=== PATIENT | female | born 1945 | race Caucasian/White ===

== ENCOUNTER → 2016-12-31 | Outpatient (CLI) | payer MEDICARE ==
--- NOTE | 2016-12-31 10:11 | MM ---
Reason for exam: additional evaluation requested from prior study. Last mammogram was performed 1 year ago. History: Patient is postmenopausal. Took hormonal contraceptives for 1 year 6 months beginning at age 20. Physical Findings: Nurse did not find any significant physical abnormalities on exam. MG 3D Diag Mammo W/Cad ZORAN Bilateral CC and MLO view(s) were taken. Prior study comparison: December 31, 2015, bilateral MG 3d diag mammo w/cad ZORAN. July 03, 2015, left breast MG 3d diag mammo w/cad LT. There are scattered fibroglandular densities. There is chronic nodularity in the left breast. No significant new findings when compared with previous films. These results were verbally communicated with the patient and result sheet given to the patient on 12/31/16. ASSESSMENT: Benign, BI-RAD 2 RECOMMENDATION: Routine screening mammogram of both breasts in 1 year.
== END | disposition home or self-care (01) ==
LOC: RADMAMWWP 08:27
PROVIDERS: ATTEND Family Medicine
DX: R92.8 Other abnormal and inconclusive findings on diagnostic imaging of breast (principal)
CPT/HCPCS: G0204; G0279

== ENCOUNTER → 2018-03-02 | Outpatient (CLI) | payer MEDICARE | END | disposition home or self-care (01) | LOC: RADMAMWWP 07:18 | PROVIDERS: ATTEND Family Medicine | DX: Z53.9 Procedure and treatment not carried out, unspecified reason (principal) ==

== ENCOUNTER → 2018-03-30 | Outpatient (CLI) | payer MEDICARE ==
--- NOTE | 2018-03-30 13:56 | MM ---
Reason for exam: screening (asymptomatic). Last mammogram was performed 1 year and 3 months ago. History: Patient is postmenopausal. Took hormonal contraceptives for 1 year 6 months beginning at age 20. Physical Findings: A clinical breast exam by your physician is recommended on an annual basis and results should be correlated with mammographic findings. MG 3D Screening Mammo W/Cad Bilateral CC and MLO view(s) were taken. Prior study comparison: December 31, 2016, bilateral MG 3d diag mammo w/cad ZORAN. December 31, 2015, bilateral MG 3d diag mammo w/cad ZORAN. The breast tissue is heterogeneously dense. This may lower the sensitivity of mammography. There is chronic nodularity in the left breast. No significant changes when compared with prior studies. ASSESSMENT: Benign, BI-RAD 2 RECOMMENDATION: Routine screening mammogram of both breasts in 1 year.
== END | disposition home or self-care (01) ==
LOC: RADMAMWWP 07:40
PROVIDERS: ATTEND Family Medicine
DX: Z12.31 Encounter for screening mammogram for malignant neoplasm of breast (principal)
CPT/HCPCS: 77063; 77067

== ENCOUNTER → 2018-05-15 | Outpatient (CLI) | payer MEDICARE ==
--- NOTE | 2018-05-15 10:09 | XR ---
EXAMINATION TYPE: XR chest 2V DATE OF EXAM: 05/15/2018 COMPARISON: NONE HISTORY: History of asthma with shortness of breath TECHNIQUE: Frontal and lateral views of the chest are obtained. FINDINGS: There is no focal air space opacity, pleural effusion, or pneumothorax seen. The cardiac silhouette size is upper limits of normal. The osseous structures are intact. IMPRESSION: No suspicious acute pulmonary process.
== END | disposition home or self-care (01) ==
LOC: RADXRYALE 09:48
PROVIDERS: ATTEND Family Medicine
DX: J45.20 Mild intermittent asthma, uncomplicated (principal); R06.02 Shortness of breath
CPT/HCPCS: 71046

== ENCOUNTER → 2019-06-26 | Outpatient (CLI) | payer MEDICARE ==
--- NOTE | 2019-06-27 13:26 | MM ---
Reason for exam: screening (asymptomatic). Last mammogram was performed 1 year and 3 months ago. History: Patient is postmenopausal. Took hormonal contraceptives for 1 year 6 months beginning at age 20. Physical Findings: A clinical breast exam by your physician is recommended on an annual basis and results should be correlated with mammographic findings. MG 3D Screening Mammo W/Cad Bilateral CC and MLO view(s) were taken. Prior study comparison: March 30, 2018, bilateral MG 3d screening mammo w/cad. December 31, 2016, bilateral MG 3d diag mammo w/cad ZORAN. There is chronic nodularity bilaterally. Motion artifact, chronic problem. No significant changes when compared with prior studies. ASSESSMENT: Benign, BI-RAD 2 RECOMMENDATION: Routine screening mammogram of both breasts in 1 year.
== END | disposition home or self-care (01) ==
LOC: RADMAMWWP 08:49
PROVIDERS: ATTEND Family Medicine
DX: Z12.31 Encounter for screening mammogram for malignant neoplasm of breast (principal)
CPT/HCPCS: 77063; 77067

== ENCOUNTER 2021-12-27 09:57 | Emergency (ER) | payer MEDICARE ==
[2021-12-27 10:09] VITALS: RESP 18
[2021-12-27] MEDS ORDERED: ONDANSETRON 4 MG/2 ML VIAL IVP STA (10:15)
[2021-12-27] MEDS ORDERED: SODIUM CHLORIDE 0.9% 1,000 ML IV STA (10:15)
[2021-12-27] MEDS ORDERED: PANTOPRAZOLE 40 MG/10 ML VIAL IVP STA (10:15)
--- NOTE | 2021-12-27 10:17 | ED ---
Nausea/Vomiting/Diarrhea HPI - General Chief complaint: Nausea/Vomiting/Diarrhea Stated complaint: Nausea/vomiting Time Seen by Provider: 12/27/21 10:06 Source: patient, EMS, RN notes reviewed Mode of arrival: EMS Limitations: no limitations - History of Present Illness Initial comments: This is a 76-year-old female presents emergency Department via EMS chief complaint of nausea vomiting diarrhea. Patient states symptoms started this morning she continues to have nausea and vomiting she did have episodes of diarrhea. Denies any melena hematochezia. Patient denies any blood thinners no chest pain or shortness of breath. Patient states she was outside working in yard but was not strenuous yesterday. Patient denies any dysuria hematuria patient denies any sick contacts. - Related Data Previous Rx's Medication Instructions Recorded Ondansetron Odt [Zofran Odt] 4 mg PO Q8HR PRN #10 tab 12/27/21 metFORMIN HCL [Glucophage] 500 mg PO BID #60 tab 12/27/21 Allergies Allergy/AdvReac Type Severity Reaction Status Date / Time No Known Allergies Allergy Verified 12/31/14 16:07 Review of Systems ROS Statement: Those systems with pertinent positive or pertinent negative responses have been documented in the HPI. ROS Other: All systems not noted in ROS Statement are negative. Past Medical History Past Medical History: COPD, Hypertension Additional Past Medical History / Comment(s): Pre-diabetic History of Any Multi-Drug Resistant Organisms: None Reported Past Surgical History: No Surgical Hx Reported Smoking Status: Never smoker Past Alcohol Use History: None Reported Past Drug Use History: None Reported General Exam Limitations: no limitations General appearance: alert, in no apparent distress Head exam: Present: atraumatic, normocephalic, normal inspection Eye exam: Present: normal appearance, PERRL, EOMI. Absent: scleral icterus, conjunctival injection, periorbital swelling ENT exam: Present: normal exam, normal oropharynx, mucous membranes moist Neck exam: Present: normal inspection, full ROM. Absent: tenderness, m eningismus, lymphadenopathy Respiratory exam: Present: normal lung sounds bilaterally. Absent: respiratory distress, wheezes, rales, rhonchi, stridor Cardiovascular Exam: Present: regular rate, normal rhythm, normal heart sounds. Absent: systolic murmur, diastolic murmur, rubs, gallop, clicks GI/Abdominal exam: Present: soft, normal bowel sounds. Absent: distended, tenderness, guarding, rebound, rigid Back exam: Absent: CVA tenderness (R), CVA tenderness (L) Neurological exam: Present: alert Skin exam: Present: warm, dry, intact, normal color. Absent: rash Course Vital Signs 12/27/21 12/27/21 10:01 12:20 Temperature 97.6 F Pulse Rate 68 79 Respiratory 18 18 Rate Blood Pressure 168/60 140/69 O2 Sat by Pulse 97 95 Oximetry Medical Decision Making - Medical Decision Making 76-year-old presented for nausea vomiting. She is well-hydrated patient did have mild acidosis, hyperglycemia. She has been told she has borderline diabetic his blood sugar 223. Patient feels improved after antiemetics. Patient we discharged in stable condition return parameters were discussed. - Lab Data Result diagrams: 12/27/21 10:17 12/27/21 10:17 Lab Results 12/27/21 12/27/21 12/27/21 Range/Units 10:17 10:17 10:17 WBC 12.9 H (3.8-10.6) k/uL RBC 4.73 (3.80-5.40) m/uL Hgb 13.6 (11.4-16.0) gm/dL Hct 43.0 (34.0-46.0) % MCV 90.9 (80.0-100.0) fL MCH 28.7 (25.0-35.0) pg MCHC 31.6 (31.0-37.0) g/dL RDW 12.2 (11.5-15.5) % Plt Count 138 L (150-450) k/uL MPV 9.2 Neutrophils % 82 % Lymphocytes % 12 % Monocytes % 3 % Eosinophils % 1 % Basophils % 1 % Neutrophils # 10.6 H (1.3-7.7) k/uL Lymphocytes # 1.5 (1.0-4.8) k/uL Monocytes # 0.4 (0-1.0) k/uL Eosinophils # 0.1 (0-0.7) k/uL Basophils # 0.1 (0-0.2) k/uL Sodium 137 (137-145) mmol/L Potassium 4.1 (3.5-5.1) mmol/L Chloride 105 (98-107) mmol/L Carbon Dioxide 21 L (22-30) mmol/L Anion Gap 11 mmol/L BUN 17 (7-17) mg/dL Creatinine 1.10 H (0.52-1.04) mg/dL Est GFR (CKD-EPI)AfAm 57 (>60 ml/min/1.73 sqM) Est GFR (CKD-EPI)NonAf 49 (>60 ml/min/1.73 sqM) Glucose 223 H (74-99) mg/dL Lactic Ac Sepsis Rflx Plasma Lactic Acid John (0.7-2.0) mmol/L Calcium 8.9 (8.4-10.2) mg/dL Total Bilirubin 1.1 (0.2-1.3) mg/dL AST 33 (14-36) U/L ALT 22 (4-34) U/L Alkaline Phosphatase 76 (38-126) U/L Troponin I (0.000-0.034) ng/mL Total Protein 7.7 (6.3-8.2) g/dL Albumin 4.1 (3.5-5.0) g/dL Amylase 56 (30-110) U/L Lipase 97 (23-300) U/L Urine Color Yellow Urine Appearance Cloudy H (Clear) Urine pH 5.0 (5.0-8.0) Ur Specific [place] 1.014 (1.001-1.035) Urine Protein Negative (Negative) Urine Glucose (UA) 2+ H (Negative) Urine Ketones 2+ H (Negative) Urine Blood Negative (Negative) Urine Nitrite Negative (Negative) Urine Bilirubin Negative (Negative) Urine Urobilinogen <2.0 (<2.0) mg/dL Ur Leukocyte Esterase Negative (Negative) Urine RBC 2 (0-5) /hpf Urine WBC 2 (0-5) /hpf Ur Squamous Epith Cells 2 (0-4) /hpf Hyaline Casts 4 H (0-2) /lpf Urine Mucus Occasional H (None) /hpf 12/27/21 12/27/21 12/27/21 Range/Units 10:17 10:17 10:45 WBC (3.8-10.6) k/uL RBC (3.80-5.40) m/uL Hgb (11.4-16.0) gm/dL Hct (34.0-46.0) % MCV (80.0-100.0) fL MCH (25.0-35.0) pg MCHC (31.0-37.0) g/dL RDW (11.5-15.5) % Plt Count (150-450) k/uL MPV Neutrophils % % Lymphocytes % % Monocytes % % Eosinophils % % Basophils % % Neutrophils # (1.3-7.7) k/uL Lymphocytes # (1.0-4.8) k/uL Monocytes # (0-1.0) k/uL Eosinophils # (0-0.7) k/uL Basophils # (0-0.2) k/uL Sodium (137-145) mmol/L Potassium (3.5-5.1) mmol/L Chloride (98-107) mmol/L Carbon Dioxide (22-30) mmol/L Anion Gap mmol/L BUN (7-17) mg/dL Creatinine (0.52-1.04) mg/dL Est GFR (CKD-EPI)AfAm (>60 ml/min/1.73 sqM) Est GFR (CKD-EPI)NonAf (>60 ml/min/1.73 sqM) Glucose (74-99) mg/dL Lactic Ac Sepsis Rflx Y Plasma Lactic Acid John 2.5 H* (0.7-2.0) mmol/L Calcium (8.4-10.2) mg/dL Total Bilirubin (0.2-1.3) mg/dL AST (14-36) U/L ALT (4-34) U/L Alkaline Phosphatase (38-126) U/L Troponin I 0.015 (0.000-0.034) ng/mL Total Protein (6.3-8.2) g/dL Albumin (3.5-5.0) g/dL Amylase (30-110) U/L Lipase (23-300) U/L Urine Color Urine Appearance (Clear) Urine pH (5.0-8.0) Ur Specific [place] (1.001-1.035) Urine Protein (Negative) Urine Glucose (UA) (Negative) Urine Ketones (Negative) Urine Blood (Negative) Urine Nitrite (Negative) Urine Bilirubin (Negative) Urine Urobilinogen (<2.0) mg/dL Ur Leukocyte Esterase (Negative) Urine RBC (0-5) /hpf Urine WBC (0-5) /hpf Ur Squamous Epith Cells (0-4) /hpf Hyaline Casts (0-2) /lpf Urine Mucus (None) /hpf - EKG Data -: EKG Interpreted by Me EKG Comments: EKG performed at 10:10 sinus rhythm with a rate of 68 AR 144 QRS 94 QT/QTC 450/4 67 Disposition Clinical Impression: Gastroenteritis, Hyperglycemia Disposition: HOME SELF-CARE Condition: Stable Instructions (If sedation given, give patient instructions): Gastroenteritis (ED) Additional Instructions: Please return to the Emergency Department if symptoms worsen or any other concerns. Prescriptions: metFORMIN HCL [Glucophage] 500 mg PO BID #60 tab Ondansetron Odt [Zofran Odt] 4 mg PO Q8HR PRN #10 tab PRN Reason: Nausea Is patient prescribed a controlled substance at d/c from ED?: No Referrals: Eric Brenner DO [Primary Care Provider] - 1-2 days Time of Disposition: 12:49
[2021-12-27 10:31] LABS: Basophils # (A) 0.1 k/uL (0-0.2); Basophils % (A) 1 %; Eosinophils # (A) 0.1 k/uL (0-0.7); Eosinophils % (A) 1 %; HGB 13.6 gm/dL (11.4-16.0); Lymphocytes # (A) 1.5 k/uL (1.0-4.8); Lymphocytes % (A) 12 %; MCH 28.7 pg (25.0-35.0); MCHC 31.6 g/dL (31.0-37.0); MCV 90.9 fL (80.0-100.0); Mean Platelet Volume 9.2; Monocytes # (A) 0.4 k/uL (0-1.0); Monocytes % (A) 3 %; Neutrophils # (A) 10.6 k/uL (1.3-7.7); Neutrophils % (A) 82 %; Platelet Count 138 k/uL (150-450); RBC 4.73 m/uL (3.80-5.40); RDW 12.2 % (11.5-15.5); WBC 12.9 k/uL (3.8-10.6)
[2021-12-27 10:40] LABS: Albumin 4.1 g/dL (3.5-5.0); Calcium 8.9 mg/dL (8.4-10.2); Potassium 4.1 mmol/L (3.5-5.1); Total Bilirubin 1.1 mg/dL (0.2-1.3); Total Protein 7.7 g/dL (6.3-8.2)
[2021-12-27] MEDS ORDERED: METOCLOPRAMIDE 5 MG/ML 2 ML VIAL IVP STA (11:08)
[2021-12-27] MEDS ORDERED: SODIUM CHLORIDE 0.9% 500 ML 500 ML IV ONE (11:09)
[2021-12-27 12:16] LABS: Appearance,Urine Cloudy (Clear); Bilirubin,Urine Negative (Negative); Blood,Urine Negative (Negative); Color,Urine Yellow; Glucose,Urine (UA) 2+ (Negative); Hyaline Casts,Urine 4 /lpf (0-2); Leukocyte Esterase,Urine Negative (Negative); Mucus,Urine Occasional /hpf; Nitrite,Urine Negative (Negative); Protein,Urine Negative (Negative); RBC,Urine 2 /hpf (0-5); Specific Gravity,Urine 1.014 (1.001-1.035); Squamous Epithelial Cell,Urine 2 /hpf (0-4); Urobilinogen,Urine <2.0 mg/dL (<2.0); WBC,Urine 2 /hpf (0-5)
[2021-12-27 12:19] LABS: Ketones,Urine 2+ (Negative)
[2021-12-27] MEDS ORDERED: ONDANSETRON 4 MG ODT STARTER PACK 2 TAB BTL PO STA (12:46)
[2021-12-27 12:57] VITALS: BP 143/62; PULSE 78; TEMP 98
== END 2021-12-27 13:04 | disposition home or self-care (01) ==
LOC: EC 09:57
DX: K52.9 Noninfective gastroenteritis and colitis, unspecified (principal); R73.9 Hyperglycemia, unspecified; I10 Essential (primary) hypertension; J44.9 Chronic obstructive pulmonary disease, unspecified
CPT/HCPCS: 36415; 93005; 80053; 82150; 83605; 83690; 84484; 85025; 81001; 99284; 96374; 96375 ×2; 96361; J2765; J2405; S0119; C9113

== ENCOUNTER 2022-01-02 19:17 | Emergency (ER) | payer MEDICARE ==
[2022-01-02 19:24] VITALS: TEMP 97.7
[2022-01-02] MEDS ORDERED: SODIUM CHLORIDE 0.9% 1,000 ML IV STA (19:47)
--- NOTE | 2022-01-02 20:50 | XR ---
EXAMINATION TYPE: XR chest 2V DATE OF EXAM: 01/02/2022 COMPARISON: 05/15/2018 HISTORY: Dizziness TECHNIQUE: FINDINGS: Heart is normal. Lungs are clear of infiltrate. No heart failure. There are no hilar masses . Thoracic aorta is atheromatous. There are chest leads. IMPRESSION: No active cardiopulmonary disease. Normal heart. No change.
--- NOTE | 2022-01-02 20:54 | ED ---
General Adult HPI - General Chief complaint: Dizziness Stated complaint: Dizziness/Revisit here12/27 Time Seen by Provider: 01/02/22 19:28 Source: patient Mode of arrival: ambulatory Limitations: no limitations - History of Present Illness Initial comments: Patient is a 76-year-old female presenting with chief complaint of nausea and lightheadedness. Patient was seen here about one week ago, she was started on metformin due to high blood sugar and appearing pre-acidotic. Today she followed up with her PCP Dr. Brenner, who advised her to stop metformin. Her daughter at bedside states that after stopping it she began feeling nauseous and vomiting. Patient states that she felt lightheaded. She seemed to be more fatigued at home. Daughter states that earlier she had a severe bilateral hand tremor and cannot even hold a glass of water due to the shaking. Prior to arrival she took ondansetron which relieved her nausea and vomiting. Daughter states that she has been having diarrhea throughout this week. Patient denies any loss of consciousness or use of blood thinners. No recent fall or head injury. Patient lives with her family. She denies any chest pain or shortness of breath. No palpitations. No numbness or tingling. No abdominal pain. No dysuria or hematuria. No back pain. No Fever or chills. - Related Data Previous Rx's Medication Instructions Recorded Ondansetron Odt [Zofran Odt] 4 mg PO Q8HR PRN #10 tab 12/27/21 metFORMIN HCL [Glucophage] 500 mg PO BID #60 tab 12/27/21 Allergies Allergy/AdvReac Type Severity Reaction Status Date / Time No Known Allergies Allergy Verified 12/31/14 16:07 Review of Systems ROS Statement: Those systems with pertinent positive or pertinent negative responses have been documented in the HPI. ROS Other: All systems not noted in ROS Statement are negative. Past Medical History Past Medical History: COPD, Hypertension Additional Past Medical History / Comment(s): Pre-diabetic History of Any Multi-Drug Resistant Organisms: None Reported Past Surgical History: No Surgical Hx Reported Smoking Status: Never smoker Past Alcohol Use History: None Reported Past Drug Use History: None Reported General Exam Limitations: no limitations General appearance: alert, in no apparent distress Head exam: Present: atraumatic, normocephalic, normal inspection Eye exam: Present: normal appearance, EOMI. Absent: scleral icterus Neck exam: Present: normal inspection Respiratory exam: Present: normal lung sounds bilaterally. Absent: respiratory distress, wheezes, rales, rhonchi, stridor Cardiovascular Exam: Present: regular rate, normal rhythm, normal heart sounds. Absent: systolic murmur, diastolic murmur, rubs, gallop, clicks GI/Abdominal exam: Present: soft, normal bowel sounds. Absent: distended, tenderness, guarding, rebound, rigid Neurological exam: Present: alert, oriented X3, CN II-XII intact Expanded Patient oriented to: Present: person, place, time Speech: Present: fluid speech Cranial nerves: EOM's Intact: Normal, Tongue Deviation: Normal, Facial Sensation: Normal Cerebellar function: Finger to Nose: Normal, Heel to [place]: Normal Motor strength exam: RUE: 5, LUE: 5, RLE: 5, LLE: 5 Eye Response: (4) open spontaneously Motor Response: (6) obeys commands Verbal Response: (5) oriented [place] Total: 15 Psychiatric exam: Present: normal affect, normal mood Skin exam: Present: warm, dry, intact, normal color. Absent: rash Course Vital Signs 01/02/22 01/02/22 01/02/22 19:19 22:00 23:15 Temperature 97.7 F Pulse Rate 84 78 75 Respiratory 17 18 18 Rate Blood Pressure 150/73 143/80 140/69 O2 Sat by Pulse 96 95 97 Oximetry EKG Findings - EKG Comments: EKG Findings:: Sinus rhythm with rate of 85. NE interval 146. QRS duration 94. No acute ST or T-wave abnormalities. This EKG was also shown to and interpreted by the attending physician. Medical Decision Making - Medical Decision Making Patient is a 76-year-old female presenting for evaluation of lightheadedness, nausea, vomiting. Patient states that she was on metformin for 1 week after being evaluated here in the ER, today her PCP stopped this medication. After which she began feeling nauseous and vomiting, afterwards patient felt lightheaded and had a tremor. She to Zofran at home, by the time she reached the ER the patient states she was asymptomatic. On examination there are no focal neurological deficits, abdomen is soft, nontender, nondistended, heart and lungs are clear to auscultation. Patient is hyperglycemic at glucose of 151, no signs of acidosis. There is mild elevation of AST and ALT. Otherwise lab work is grossly negative. Chest x-ray is negative. On reassessment patient continues to feel well. She appears stable for discharge with outpatient follow-up at this time. Follow-up with PCP this week. Report back to ER if any new or worsening symptoms. Discussed return parameters alarm symptoms. Answered all questions. Patient conveyed verbal understanding and agreed to the plan. I discussed this case with my attending Dr. Larson. - Lab Data Result diagrams: 01/02/22 21:02 01/02/22 21:02 Lab Results 01/02/22 01/02/22 01/02/22 Range/Units 21:02 21:02 21:02 WBC 9.1 (3.8-10.6) k/uL RBC 4.63 (3.80-5.40) m/uL Hgb 13.9 (11.4-16.0) gm/dL Hct 41.4 (34.0-46.0) % MCV 89.5 (80.0-100.0) fL MCH 30.1 (25.0-35.0) pg MCHC 33.6 (31.0-37.0) g/dL RDW 12.8 (11.5-15.5) % Plt Count 128 L (150-450) k/uL MPV 8.8 Neutrophils % 86 % Lymphocytes % 8 % Monocytes % 4 % Eosinophils % 0 % Basophils % 1 % Neutrophils # 7.8 H (1.3-7.7) k/uL Lymphocytes # 0.7 L (1.0-4.8) k/uL Monocytes # 0.4 (0-1.0) k/uL Eosinophils # 0.0 (0-0.7) k/uL Basophils # 0.1 (0-0.2) k/uL PT 11.2 (9.0-12.0) sec INR 1.0 (<1.2) VBG pH (7.31-7.41) VBG pCO2 (37-51) mmHg VBG HCO3 (24-28) mmol/L Sodium 136 L (137-145) mmol/L Potassium 3.8 (3.5-5.1) mmol/L Chloride 102 (98-107) mmol/L Carbon Dioxide 26 (22-30) mmol/L Anion Gap 8 mmol/L BUN 16 (7-17) mg/dL Creatinine 0.87 (0.52-1.04) mg/dL Est GFR (CKD-EPI)AfAm 76 (>60 ml/min/1.73 sqM) Est GFR (CKD-EPI)NonAf 66 (>60 ml/min/1.73 sqM) Glucose 151 H (74-99) mg/dL Plasma Lactic Acid John (0.7-2.0) mmol/L Calcium 9.3 (8.4-10.2) mg/dL Total Bilirubin 0.9 (0.2-1.3) mg/dL AST 40 H (14-36) U/L ALT 35 H (4-34) U/L Alkaline Phosphatase 73 (38-126) U/L Troponin I (0.000-0.034) ng/mL Total Protein 7.7 (6.3-8.2) g/dL Albumin 4.1 (3.5-5.0) g/dL Amylase 63 (30-110) U/L Lipase 173 (23-300) U/L Urine Color Urine Appearance (Clear) Urine pH (5.0-8.0) Ur Specific [place] (1.001-1.035) Urine Protein (Negative) Urine Glucose (UA) (Negative) Urine Ketones (Negative) Urine Blood (Negative) Urine Nitrite (Negative) Urine Bilirubin (Negative) Urine Urobilinogen (<2.0) mg/dL Ur Leukocyte Esterase (Negative) Urine RBC (0-5) /hpf Urine WBC (0-5) /hpf Ur Squamous Epith Cells (0-4) /hpf Urine Bacteria (None) /hpf Hyaline Casts (0-2) /lpf Urine Mucus (None) /hpf Acetone, Qual Negative (Negative) 01/02/22 01/02/22 01/02/22 Range/Units 21:02 21:02 21:57 WBC (3.8-10.6) k/uL RBC (3.80-5.40) m/uL Hgb (11.4-16.0) gm/dL Hct (34.0-46.0) % MCV (80.0-100.0) fL MCH (25.0-35.0) pg MCHC (31.0-37.0) g/dL RDW (11.5-15.5) % Plt Count (150-450) k/uL MPV Neutrophils % % Lymphocytes % % Monocytes % % Eosinophils % % Basophils % % Neutrophils # (1.3-7.7) k/uL Lymphocytes # (1.0-4.8) k/uL Monocytes # (0-1.0) k/uL Eosinophils # (0-0.7) k/uL Basophils # (0-0.2) k/uL PT (9.0-12.0) sec INR (<1.2) VBG pH 7.44 H (7.31-7.41) VBG pCO2 40 (37-51) mmHg VBG HCO3 27 (24-28) mmol/L Sodium (137-145) mmol/L Potassium (3.5-5.1) mmol/L Chloride (98-107) mmol/L Carbon Dioxide (22-30) mmol/L Anion Gap mmol/L BUN (7-17) mg/dL Creatinine (0.52-1.04) mg/dL Est GFR (CKD-EPI)AfAm (>60 ml/min/1.73 sqM) Est GFR (CKD-EPI)NonAf (>60 ml/min/1.73 sqM) Glucose (74-99) mg/dL Plasma Lactic Acid John 1.5 (0.7-2.0) mmol/L Calcium (8.4-10.2) mg/dL Total Bilirubin (0.2-1.3) mg/dL AST (14-36) U/L ALT (4-34) U/L Alkaline Phosphatase (38-126) U/L Troponin I <0.012 (0.000-0.034) ng/mL Total Protein (6.3-8.2) g/dL Albumin (3.5-5.0) g/dL Amylase (30-110) U/L Lipase (23-300) U/L Urine Color Urine Appearance (Clear) Urine pH (5.0-8.0) Ur Specific [place] (1.001-1.035) Urine Protein (Negative) Urine Glucose (UA) (Negative) Urine Ketones (Negative) Urine Blood (Negative) Urine Nitrite (Negative) Urine Bilirubin (Negative) Urine Urobilinogen (<2.0) mg/dL Ur Leukocyte Esterase (Negative) Urine RBC (0-5) /hpf Urine WBC (0-5) /hpf Ur Squamous Epith Cells (0-4) /hpf Urine Bacteria (None) /hpf Hyaline Casts (0-2) /lpf Urine Mucus (None) /hpf Acetone, Qual (Negative) 01/02/22 Range/Units 22:00 WBC (3.8-10.6) k/uL RBC (3.80-5.40) m/uL Hgb (11.4-16.0) gm/dL Hct (34.0-46.0) % MCV (80.0-100.0) fL MCH (25.0-35.0) pg MCHC (31.0-37.0) g/dL RDW (11.5-15.5) % Plt Count (150-450) k/uL MPV Neutrophils % % Lymphocytes % % Monocytes % % Eosinophils % % Basophils % % Neutrophils # (1.3-7.7) k/uL Lymphocytes # (1.0-4.8) k/uL Monocytes # (0-1.0) k/uL Eosinophils # (0-0.7) k/uL Basophils # (0-0.2) k/uL PT (9.0-12.0) sec INR (<1.2) VBG pH (7.31-7.41) VBG pCO2 (37-51) mmHg VBG HCO3 (24-28) mmol/L Sodium (137-145) mmol/L Potassium (3.5-5.1) mmol/L Chloride (98-107) mmol/L Carbon Dioxide (22-30) mmol/L Anion Gap mmol/L BUN (7-17) mg/dL Creatinine (0.52-1.04) mg/dL Est GFR (CKD-EPI)AfAm (>60 ml/min/1.73 sqM) Est GFR (CKD-EPI)NonAf (>60 ml/min/1.73 sqM) Glucose (74-99) mg/dL Plasma Lactic Acid John (0.7-2.0) mmol/L Calcium (8.4-10.2) mg/dL Total Bilirubin (0.2-1.3) mg/dL AST (14-36) U/L ALT (4-34) U/L Alkaline Phosphatase (38-126) U/L Troponin I (0.000-0.034) ng/mL Total Protein (6.3-8.2) g/dL Albumin (3.5-5.0) g/dL Amylase (30-110) U/L Lipase (23-300) U/L Urine Color Yellow Urine Appearance Clear (Clear) Urine pH 5.0 (5.0-8.0) Ur Specific [place] 1.020 (1.001-1.035) Urine Protein Negative (Negative) Urine Glucose (UA) Negative (Negative) Urine Ketones 1+ H (Negative) Urine Blood Negative (Negative) Urine Nitrite Negative (Negative) Urine Bilirubin Negative (Negative) Urine Urobilinogen <2.0 (<2.0) mg/dL Ur Leukocyte Esterase Moderate H (Negative) Urine RBC 1 (0-5) /hpf Urine WBC 5 (0-5) /hpf Ur Squamous Epith Cells 1 (0-4) /hpf Urine Bacteria Rare H (None) /hpf Hyaline Casts 1 (0-2) /lpf Urine Mucus Few H (None) /hpf Acetone, Qual (Negative) Disposition Clinical Impression: Nausea and vomiting Disposition: HOME SELF-CARE Condition: Good Instructions (If sedation given, give patient instructions): Acute Nausea and Vomiting (ED), Dizziness (ED) Additional Instructions: Follow-up with PCP this week. Report back to ER if any new or worsening symptoms. Is patient prescribed a controlled substance at d/c from ED?: No Referrals: Eric Brenner DO [Primary Care Provider] - 01/04/22 Time of Disposition: 22:56
[2022-01-02 21:35] LABS: ALT 35 U/L (4-34); AST 40 U/L (14-36); African American GFR (CKD) 76 (>60 ml/min/1.73 sqM); Albumin 4.1 g/dL (3.5-5.0); Alkaline Phosphatase 73 U/L (38-126); Amylase 63 U/L (30-110); Anion Gap 8 mmol/L; Blood Urea Nitrogen 16 mg/dL (7-17); Calcium 9.3 mg/dL (8.4-10.2); Carbon Dioxide 26 mmol/L (22-30); Chloride 102 mmol/L (98-107); Glucose 151 mg/dL (74-99); Lipase 173 U/L (23-300); Non-African American GFR(CKD) 66 (>60 ml/min/1.73 sqM); Potassium 3.8 mmol/L (3.5-5.1); Sodium 136 mmol/L (137-145); Total Bilirubin 0.9 mg/dL (0.2-1.3); Total Protein 7.7 g/dL (6.3-8.2)
[2022-01-02 21:59] LABS: Prothrombin Time 11.2 sec (9.0-12.0)
[2022-01-02 22:14] LABS: Basophils # (A) 0.1 k/uL (0-0.2); Basophils % (A) 1 %; Eosinophils % (A) 0 %; HCT 41.4 % (34.0-46.0); HGB 13.9 gm/dL (11.4-16.0); Lymphocytes # (A) 0.7 k/uL (1.0-4.8); Lymphocytes % (A) 8 %; MCH 30.1 pg (25.0-35.0); MCHC 33.6 g/dL (31.0-37.0); MCV 89.5 fL (80.0-100.0); Mean Platelet Volume 8.8; Monocytes # (A) 0.4 k/uL (0-1.0); Monocytes % (A) 4 %; Neutrophils # (A) 7.8 k/uL (1.3-7.7); Neutrophils % (A) 86 %; Platelet Count 128 k/uL (150-450); RBC 4.63 m/uL (3.80-5.40); RDW 12.8 % (11.5-15.5); WBC 9.1 k/uL (3.8-10.6)
[2022-01-02 22:50] LABS: Appearance,Urine Clear (Clear); Bacteria,Urine Rare /hpf; Bilirubin,Urine Negative (Negative); Blood,Urine Negative (Negative); Color,Urine Yellow; Glucose,Urine (UA) Negative (Negative); Hyaline Casts,Urine 1 /lpf (0-2); Ketones,Urine 1+ (Negative); Leukocyte Esterase,Urine Moderate (Negative); Mucus,Urine Few /hpf; Nitrite,Urine Negative (Negative); Protein,Urine Negative (Negative); RBC,Urine 1 /hpf (0-5); Squamous Epithelial Cell,Urine 1 /hpf (0-4); Urobilinogen,Urine <2.0 mg/dL (<2.0); WBC,Urine 5 /hpf (0-5)
[2022-01-02 22:59] VITALS: RESP 18
[2022-01-02 22:59] LABS: VBG PH 7.44 (7.31-7.41)
[2022-01-02] MEDS ORDERED: ONDANSETRON 4 MG/2 ML VIAL IVP STA (23:10)
[2022-01-02 23:16] VITALS: BP 140/69; PULSE 75
== END 2022-01-02 23:29 | disposition home or self-care (01) ==
LOC: EC 19:17
DX: R11.2 Nausea with vomiting, unspecified (principal); J44.9 Chronic obstructive pulmonary disease, unspecified; I10 Essential (primary) hypertension
CPT/HCPCS: 36415; 93005; 80053; 82150; 82803; 82009; 83605; 83690; 84484; 85025; 85610; 81001; 71046; 99284; 96374; 96361; J2405

== ENCOUNTER 2022-01-17 02:18 | Inpatient (IN) | payer MEDICARE ==
[2022-01-17] MEDS ORDERED: SODIUM CHLORIDE 0.9% 500 ML 500 ML IV ONE (02:57)
[2022-01-17 03:37] LABS: Glucose,Whole Blood 137 mg/dL (70-110)
--- NOTE | 2022-01-17 03:41 | ED ---
Altered Mental Status HPI - General Chief Complaint: Altered Mental Status Stated Complaint: Lethargy Time Seen by Provider: 01/17/22 02:40 Source: EMS Mode of arrival: EMS Limitations: no limitations - History of Present Illness Initial Comments: This patient is a 76-year-old woman who is sent to have an evaluation after her daughter felt that she was too hard to arouse tonight. The patient's daughter then called EMS who brought her for evaluation. There is concern that the patient may have had a fall within the past 2-3 weeks and may have struck her head. When I interview the patient herself, she does not have complaints. She denies pain. She denies dyspnea. No nausea or vomiting. MD Complaint: altered mental status, decreased responsiveness -: hour(s) Severity: moderate Context: history of similar presentation Associated Symptoms: denies other symptoms - Related Data Previous Rx's Medication Instructions Recorded Ondansetron Odt [Zofran Odt] 4 mg PO Q8HR PRN #10 tab 12/27/21 metFORMIN HCL [Glucophage] 500 mg PO BID #60 tab 12/27/21 Allergies Allergy/AdvReac Type Severity Reaction Status Date / Time No Known Allergies Allergy Verified 12/31/14 16:07 Review of Systems ROS Statement: Those systems with pertinent positive or pertinent negative responses have been documented in the HPI. ROS Other: All systems not noted in ROS Statement are negative. Constitutional: Denies: fever, chills, weakness Eyes: Denies: eye pain Respiratory: Denies: cough, dyspnea Cardiovascular: Denies: chest pain, palpitations, edema Gastrointestinal: Denies: abdominal pain, vomiting, diarrhea Genitourinary: Denies: dysuria, frequency, hematuria Musculoskeletal: Denies: back pain Skin: Denies: rash Neurological: Denies: headache, weakness, numbness Past Medical History Past Medical History: COPD, Hypertension Additional Past Medical History / Comment(s): Pre-diabetic History of Any Multi-Drug Resistant Organisms: None Reported Past Surgical History: No Surgical Hx Reported Smoking Status: Never smoker Past Alcohol Use History: None Reported Past Drug Use History: None Reported General Exam Limitations: no limitations General appearance: alert, in no apparent distress Head exam: Present: atraumatic, normocephalic Eye exam: Present: normal appearance, PERRL, EOMI. Absent: scleral icterus, conjunctival injection Neck exam: Present: normal inspection, full ROM Respiratory exam: Present: normal lung sounds bilaterally. Absent: respiratory distress, wheezes, rales, rhonchi, stridor Cardiovascular Exam: Present: regular rate, normal rhythm, normal heart sounds. Absent: systolic murmur, diastolic murmur, rubs, gallop GI/Abdominal exam: Present: soft. Absent: distended, tenderness, guarding, rebound, rigid, mass Extremities exam: Present: normal inspection, normal capillary refill. Absent: pedal edema, calf tenderness Back exam: Present: normal inspection. Absent: CVA tenderness (R), CVA tenderness (L) Neurological exam: Present: other (Patient is somnolent but arousable. She follows simple commands but not able to fully comply with the neurologic exam.) Skin exam: Present: warm, dry, intact, normal color. Absent: rash Course Vital Signs 01/17/22 01/17/22 02:25 06:18 Temperature 96.9 F L 97.4 F L Pulse Rate 95 91 Respiratory 18 20 Rate Blood Pressure 103/54 113/60 O2 Sat by Pulse 94 L 97 Oximetry Medical Decision Making - Lab Data Result diagrams: 01/17/22 03:17 01/17/22 03:17 Lab Results 01/17/22 01/17/22 01/17/22 Range/Units 03:17 03:17 03:17 WBC 13.5 H (3.8-10.6) k/uL RBC 5.01 (3.80-5.40) m/uL Hgb 14.9 (11.4-16.0) gm/dL Hct 44.7 (34.0-46.0) % MCV 89.2 (80.0-100.0) fL MCH 29.8 (25.0-35.0) pg MCHC 33.4 (31.0-37.0) g/dL RDW 12.3 (11.5-15.5) % Plt Count 175 (150-450) k/uL MPV 8.4 Neutrophils % 80 % Lymphocytes % 11 % Monocytes % 6 % Eosinophils % 1 % Basophils % 1 % Neutrophils # 10.8 H (1.3-7.7) k/uL Lymphocytes # 1.5 (1.0-4.8) k/uL Monocytes # 0.8 (0-1.0) k/uL Eosinophils # 0.1 (0-0.7) k/uL Basophils # 0.1 (0-0.2) k/uL Sodium 133 L (137-145) mmol/L Potassium 4.1 (3.5-5.1) mmol/L Chloride 98 (98-107) mmol/L Carbon Dioxide 24 (22-30) mmol/L Anion Gap 11 mmol/L BUN 24 H (7-17) mg/dL Creatinine 1.65 H (0.52-1.04) mg/dL Est GFR (CKD-EPI)AfAm 35 (>60 ml/min/1.73 sqM) Est GFR (CKD-EPI)NonAf 30 (>60 ml/min/1.73 sqM) Glucose 133 H (74-99) mg/dL POC Glucose (mg/dL) (70-110) mg/dL POC Glu Web Ui Software Engineer ID Plasma Lactic Acid John (0.7-2.0) mmol/L Calcium 9.5 (8.4-10.2) mg/dL Total Bilirubin 1.6 H (0.2-1.3) mg/dL AST 59 H (14-36) U/L ALT 61 H (4-34) U/L Alkaline Phosphatase 89 (38-126) U/L Ammonia (<30) umol/L Troponin I <0.012 (0.000-0.034) ng/mL Total Protein 8.6 H (6.3-8.2) g/dL Albumin 4.4 (3.5-5.0) g/dL TSH 2.120 (0.465-4.680) mIU/L 01/17/22 01/17/22 Range/Units 03:17 03:34 WBC (3.8-10.6) k/uL RBC (3.80-5.40) m/uL Hgb (11.4-16.0) gm/dL Hct (34.0-46.0) % MCV (80.0-100.0) fL MCH (25.0-35.0) pg MCHC (31.0-37.0) g/dL RDW (11.5-15.5) % Plt Count (150-450) k/uL MPV Neutrophils % % Lymphocytes % % Monocytes % % Eosinophils % % Basophils % % Neutrophils # (1.3-7.7) k/uL Lymphocytes # (1.0-4.8) k/uL Monocytes # (0-1.0) k/uL Eosinophils # (0-0.7) k/uL Basophils # (0-0.2) k/uL Sodium (137-145) mmol/L Potassium (3.5-5.1) mmol/L Chloride (98-107) mmol/L Carbon Dioxide (22-30) mmol/L Anion Gap mmol/L BUN (7-17) mg/dL Creatinine (0.52-1.04) mg/dL Est GFR (CKD-EPI)AfAm (>60 ml/min/1.73 sqM) Est GFR (CKD-EPI)NonAf (>60 ml/min/1.73 sqM) Glucose (74-99) mg/dL POC Glucose (mg/dL) 137 H (70-110) mg/dL POC Glu Web Ui Software Engineer ID Sylvain Espino Plasma Lactic Acid John 1.5 (0.7-2.0) mmol/L Calcium (8.4-10.2) mg/dL Total Bilirubin (0.2-1.3) mg/dL AST (14-36) U/L ALT (4-34) U/L Alkaline Phosphatase (38-126) U/L Ammonia 14 (<30) umol/L Troponin I (0.000-0.034) ng/mL Total Protein (6.3-8.2) g/dL Albumin (3.5-5.0) g/dL TSH (0.465-4.680) mIU/L - EKG Data -: EKG Interpreted by Wy EKG shows normal: sinus rhythm, intervals (NJ interval 140 ms, QTC 493 ms, these are both normal. QRS duration 155 ms, prolonged consistent with left bundle branch block.), QRS complexes ((Bundle-branch block.) Rate: normal (Rate 88 bpm) Disposition Clinical Impression: Altered mental status Disposition: ADMITTED IP TO THIS HOSP Condition: Good Is patient prescribed a controlled substance at d/c from ED?: No
[2022-01-17 03:54] LABS: Basophils # (A) 0.1 k/uL (0-0.2); Basophils % (A) 1 %; Eosinophils # (A) 0.1 k/uL (0-0.7); Eosinophils % (A) 1 %; HCT 44.7 % (34.0-46.0); HGB 14.9 gm/dL (11.4-16.0); Lymphocytes # (A) 1.5 k/uL (1.0-4.8); Lymphocytes % (A) 11 %; MCH 29.8 pg (25.0-35.0); MCHC 33.4 g/dL (31.0-37.0); MCV 89.2 fL (80.0-100.0); Mean Platelet Volume 8.4; Monocytes # (A) 0.8 k/uL (0-1.0); Monocytes % (A) 6 %; Neutrophils # (A) 10.8 k/uL (1.3-7.7); Neutrophils % (A) 80 %; Platelet Count 175 k/uL (150-450); RBC 5.01 m/uL (3.80-5.40); RDW 12.3 % (11.5-15.5); WBC 13.5 k/uL (3.8-10.6)
[2022-01-17 04:12] LABS: Lactic Acid, Venous 1.5 mmol/L (0.7-2.0)
[2022-01-17 04:14] LABS: ALT 61 U/L (4-34); AST 59 U/L (14-36); African American GFR (CKD) 35 (>60 ml/min/1.73 sqM); Albumin 4.4 g/dL (3.5-5.0); Alkaline Phosphatase 89 U/L (38-126); Anion Gap 11 mmol/L; Blood Urea Nitrogen 24 mg/dL (7-17); Calcium 9.5 mg/dL (8.4-10.2); Carbon Dioxide 24 mmol/L (22-30); Chloride 98 mmol/L (98-107); Glucose 133 mg/dL (74-99); Non-African American GFR(CKD) 30 (>60 ml/min/1.73 sqM); Potassium 4.1 mmol/L (3.5-5.1); Sodium 133 mmol/L (137-145); Total Bilirubin 1.6 mg/dL (0.2-1.3); Total Protein 8.6 g/dL (6.3-8.2)
[2022-01-17] MEDS ORDERED: SODIUM CHLORIDE 0.9% 1,000 ML IV ONE (06:06)
--- NOTE | 2022-01-17 06:31 | CT ---
ADDENDUM - Added by Robin Contreras M.D. on 01/17/2022 6:31 AM (-07:00) Addendum to correct a dictation error in Impression 2 which should read IMPRESSION: 1. 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 Recommend contrast-enhanced MRI for more detailed evaluation. 2. Sulcal effacement of the bilateral anterior frontal lobe sulci with no midline shift or transtentorial herniation. No acute intracranial hemorrhage. EXAM: CT Head Without Intravenous Contrast CLINICAL HISTORY: ITS.REASON CT Reason: Altered mental status TECHNIQUE: Axial computed tomography images of the head/brain without intravenous contrast. CTDI is 49.269 mGy and DLP is 1096.4 mGy-cm. This CT exam was performed using one or more of the following dose reduction techniques: automated exposure control, adjustment of the mA and/or kV according to patient size, and/or use of iterative reconstruction technique. COMPARISON: No relevant prior studies available. 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 No hemorrhage. No midline shift. Ventricles: Ventriculomegaly of the bilateral lateral ventricles. Decompressed third and fourth ventricles. Bones/joints: Unremarkable. No acute fracture. Soft tissues: Unremarkable. Sinuses: Unremarkable as visualized. No acute sinusitis. Mastoid air cells: Unremarkable as visualized. No mastoid effusion. IMPRESSION: 1. 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 Recommend contrast-enhanced MRI for more detailed evaluation. 2. Sulcal effacement of bilateral anterior frontal lobe sulci with no midline shift. Transtentorial herniation. No acute intracranial hemorrhage. <MYCVCSECTION> Communications: 01/17/22 06:45 Verify Receipt Verified receipt with quality assurance clerk Gem report given to Dr. Evans on 01/17 06:45 (-04:00)
--- NOTE | 2022-01-17 06:35 | XR ---
EXAM: XR Chest, 1 View CLINICAL HISTORY: ITS.REASON XR Reason: altered mental status TECHNIQUE: Frontal view of the chest. COMPARISON: No relevant prior studies available. FINDINGS: Lungs: Unremarkable. No consolidation. Pleural space: Unremarkable. No pneumothorax. Heart: Unremarkable. No cardiomegaly. Mediastinum: Unremarkable. Bones/joints: Unremarkable. IMPRESSION: Normal chest x-ray.
[2022-01-17] MEDS ORDERED: NALOXONE 0.4 MG/ML 1 ML VIAL IV PRN ×2 (06:50→10:03)
[2022-01-17] MEDS ORDERED: ACETAMINOPHEN TAB 325 MG TAB PO PRN (06:50)
[2022-01-17] MEDS ORDERED: SODIUM CHLORIDE 0.9% 1,000 ML IV SCH (07:00)
[2022-01-17] MEDS ORDERED: ONDANSETRON 4 MG/2 ML VIAL IVP PRN (10:03)
[2022-01-17] MEDS ORDERED: ENOXAPARIN 40 MG/0.4 ML SYRINGE SQ SCH (10:30)
[2022-01-17] MEDS ORDERED: DEXAMETHASONE SOD PHOSPHATE 10 MG/ML 1 ML VIAL IVP STA (10:37)
--- NOTE | 2022-01-17 10:48 | P.HPIM ---
History of Present Illness H&P Date: 01/17/22 Chief Complaint: Altered mental status History of present is illness: 76-year-old female with past medical history significant for prediabetes, hypertension, possible history of anesthesia chronic kidney disease. Patient presented to emergency room with her daughter was altered mental status. The patient has been having symptoms for the past 3 weeks and presented to the emergency room 3 times already. Daughter stated that she was having episodes of nausea and vomiting alternating with weakness and altered mental status. The patient daughter stated that before 3 weeks ago the patient was normal and very active. The daughter stated that she has been having difficulty ambulating was leaning to the right. The patient also had multiple complaints including headache and visual changes. Patient is only alert oriented to herself unable to give me good history secondary to altered mental status. But she denies any chest pain or shortness of breath. She is nauseous. Workup in emergency room showed evidence of hypodense mass within the anterior corpus callosum measuring 5.1 cm 3.02.1 cm with mild hydrocephalus of the bilateral lateral ventricles. Evidence of acute kidney injury secondary to decreased oral intake and dehydration. Review of systems: All 14 review of systems evaluated and all negative except for above. Physical examination: General: Pleasantly confused Derm: warm, dry Head: atraumatic, normocephalic, symmetric Eyes: EOMI, no lid lag, anicteric sclera Mouth: no lip lesion, mucus membranes moist Cardiovascular: S1S2 reg, no murmur, positive posterior tibial pulse bilateral, Lungs: CTA bilateral, no rhonchi, no rales , no accessory muscle use Abdominal: soft, nontender to palpation, no guarding, no appreciable organomegaly Ext: no gross muscle atrophy, no edema, no contractures Neuro: Unable to assess secondary to confusion Psych: Alert, patient only alert and oriented to herself Assessment and plan: #Altered mental status, intractable nausea vomiting, weakness secondary to a anterior corpus callosum brain mass. -Most likely a combination of acute metabolic encephalopathy and brain tumor -Nothing by mouth -Stat MRI with and without contrast ordered -Neurology consultation was placed -Spoke to Dr. Coates for neurosurgery at [facility] recommended the patient to be transferred to [facility]. -Dr. Coates he is accepting physician at [facility] -Neuro checks every 2 hours -Stat Drabek test ordered for the accepting facility #Acute kidney injury -Most likely secondary to prerenal azotemia and decreased oral intake -IV fluids #Hypertension -Lisinopril on hold due to acute kidney injury #History of mild intermittent asthma -No acute exacerbation. Patient satting 97% on room air -Patient on Singulair #DVT prophylaxis with Lovenox #Full code Past Medical History Past Medical History: COPD, Hypertension Additional Past Medical History / Comment(s): Pre-diabetic History of Any Multi-Drug Resistant Organisms: None Reported Past Surgical History: No Surgical Hx Reported Past Anesthesia/Blood Transfusion Reactions: No Reported Reaction Smoking Status: Never smoker Past Alcohol Use History: None Reported Past Drug Use History: None Reported Medications and Allergies Home Medications Medication Instructions Recorded Confirmed Type Ondansetron Odt [Zofran Odt] 4 mg PO Q8HR PRN #10 tab 12/27/21 Rx metFORMIN HCL [Glucophage] 500 mg PO BID #60 tab 12/27/21 Rx Allergies Allergy/AdvReac Type Severity Reaction Status Date / Time No Known Allergies Allergy Verified 12/31/14 16:07 Physical Exam Vitals: Vital Signs Temp Pulse Pulse Resp BP BP Pulse Ox 01/17/22 08:08 97.4 F L 91 20 113/60 97 01/17/22 08:00 98.1 F 85 16 133/76 97 01/17/22 06:18 97.4 F L 91 20 113/60 97 01/17/22 02:25 96.9 F L 95 18 103/54 94 L Intake and Output 01/16/22 01/17/22 01/17/22 22:59 06:59 14:59 Other: Weight 74.843 kg 74.843 kg Results CBC & Chem 7: 01/17/22 03:17 01/17/22 03:17 Labs: Abnormal Lab Results - Last 24 Hours (Table) 01/17/22 01/17/22 01/17/22 Range/Units 03:17 03:17 03:34 WBC 13.5 H (3.8-10.6) k/uL Neutrophils # 10.8 H (1.3-7.7) k/uL Sodium 133 L (137-145) mmol/L BUN 24 H (7-17) mg/dL Creatinine 1.65 H (0.52-1.04) mg/dL Glucose 133 H (74-99) mg/dL POC Glucose (mg/dL) 137 H (70-110) mg/dL Total Bilirubin 1.6 H (0.2-1.3) mg/dL AST 59 H (14-36) U/L ALT 61 H (4-34) U/L Total Protein 8.6 H (6.3-8.2) g/dL Thrombosis Risk Factor Assmnt - Choose All That Apply Any of the Below Risk Factors Present?: Yes Each Factor Represents 1 point: Abnormal pulmonary function (COPD), Medical pt on bed rest, Obesity (BMI >25) Other Risk Factors: Yes Each Risk Factor Represents 3 Points: Age 75 years or older Thrombosis Risk Factor Assessment Total Risk Factor Score: 6 Thrombosis Risk Factor Assessment Level: High Risk
[2022-01-17] MEDS ORDERED: levETIRAcetam IV 1,000 MG in SALINE 1 100ML.BAG IVPB STA (10:49)
--- NOTE | 2022-01-17 10:54 | P.CNNES ---
History of Present Illness Consult date: 01/17/22 Requesting physician: Ranjit Esparza Reason for Consult: Altered mental status History of Present Illness: This is Tele-neurology consultation performed today on 01/17/2022. Patient is a 76-year-old female came to the hospital by ambulance health informatics specialist today at 2:18 AM As per EMS flow sheet, when they arrived, patient was laying in the bed and the family was present. Patient was lethargic, alert to verbal stimuli oriented 4. Patient does have history of dementia. Family mentioned that they called 911 out of concern for the patient's lethargic state. She has not been eating or drinking like normal. They state she has become increasingly weak over the last 3 weeks. Patient is diabetic and her blood glucose was 143. Patient did take trazodone as prescribed at 10 PM. EKG showed normal sinus rhythm. Patient's blood pressure at the scene was 85/36, pulse rate 88, respiration 18 and saturation 98%. Patient's vitals on arrival blood pressure 103/54, pulse of 95 temperature 96.9. Blood test shows WBC 13.5 normal hemoglobin and platelets. Sodium 133 potassium 4.1, BU and 24 creatinine 1.65. AST 59, ALT 61 ammonia is normal troponin negative. TSH normal. CT head showed hypodense mass centered within the anterior corpus callosum measuring 5.1 x 3.0 x 2.1 cm with mild hydrocephalus of the bilateral lateral ventricles. Recommend contrast enhanced MRI for more detailed evaluation. Sulcal effacement of bilateral anterior frontal lobe sulci with no midline shift. Transtentorial herniation. No acute intracranial hemorrhage. I personally reviewed CT head and neck revealed the findings. No previous CT scans available for comparison. Past Medical History Past Medical History: COPD, Hypertension Additional Past Medical History / Comment(s): Pre-diabetic History of Any Multi-Drug Resistant Organisms: None Reported Past Surgical History: No Surgical Hx Reported Smoking Status: Never smoker Past Alcohol Use History: None Reported Past Drug Use History: None Reported Medications and Allergies Home Medications Medication Instructions Recorded Confirmed Type Ondansetron Odt [Zofran Odt] 4 mg PO Q8HR PRN #10 tab 12/27/21 Rx metFORMIN HCL [Glucophage] 500 mg PO BID #60 tab 12/27/21 Rx Albuterol Sulfate [Albuterol 2 puff PO RT-Q4H PRN 01/17/22 01/17/22 History Sulfate Hfa] Folic Acid 1 mg PO DAILY 01/17/22 01/17/22 History Ketoconazole 2% Cream [Nizoral 2%] 1 applic TOPICAL BID PRN 01/17/22 01/17/22 History Montelukast Sodium [Singulair] 10 mg PO HS 01/17/22 01/17/22 History Omeprazole 20 mg PO DAILY 01/17/22 01/17/22 History Oxybutynin Chloride [Oxybutynin 10 mg PO DAILY 01/17/22 01/17/22 History Chloride ER] lisinopriL [Zestril] 40 mg PO DAILY 01/17/22 01/17/22 History traZODone HCL 150 mg PO HS 01/17/22 01/17/22 History Allergies Allergy/AdvReac Type Severity Reaction Status Date / Time No Known Allergies Allergy Verified 12/31/14 16:07 Physical Examination - Vital Signs Vital Signs: Vital Signs Temp Pulse Pulse Resp BP BP Pulse Ox 01/17/22 08:08 97.4 F L 91 20 113/60 97 01/17/22 08:00 98.1 F 85 16 133/76 97 01/17/22 06:18 97.4 F L 91 20 113/60 97 01/17/22 02:25 96.9 F L 95 18 103/54 94 L Intake and Output 01/16/22 01/17/22 01/17/22 22:59 06:59 14:59 Other: Weight 74.843 kg Results - Laboratory Findings CBC and BMP: 01/17/22 03:17 01/17/22 03:17 Abnormal Lab Findings: Abnormal Labs 01/17/22 01/17/22 01/17/22 03:17 03:17 03:34 WBC 13.5 H Neutrophils # 10.8 H Sodium 133 L BUN 24 H Creatinine 1.65 H Glucose 133 H POC Glucose (mg/dL) 137 H Total Bilirubin 1.6 H AST 59 H ALT 61 H Total Protein 8.6 H Assessment and Plan Assessment: * Brain mass measuring 5.1 x 3.0 x 2.1 cm within the anterior corpus callosum with mild hydrocephalus. CT images concerning for glioblastoma multiform. * Episodes of staring/zoning out off and on for last 3 months. Rule out seizures * New onset intermittent dizziness, nausea vomiting, gait imbalance for last 3 weeks. Plan: * Patient needs further workup and an urgent neurosurgical consultation for evaluation of brain mass. * MRI of the brain with and without contrast. * Patient will be given loading dose of Keppra 1000 mg IV stat, and then maintained on Keppra 500 mg twice a day. * Dexamethasone 10 mg IV push followed by 6 mg every 6 hours. * EEG * DVT prophylaxis * Discussed with patient's daughter in detail. She is in agreement for transfer to higher level of care for neurosurgical consultation. * Thank you for the consult.
--- NOTE | 2022-01-17 11:34 | P.DS ---
Providers Date of admission: 01/17/22 06:50 Expected date of discharge: 01/17/22 Attending physician: Francesca Stratton MD Consults: 01/17/22 06:50 Consult Physician Urgent Consulting Provider: Liliana Abrams Consult Reason/Comments: Altered mental status. Do you want consulting provider notified?: Yes 01/17/22 08:33 Consult Physician Routine Consulting Provider: Liliana Abrams Consult Reason/Comments: altered MS. Brain Do you want consulting provider notified?: Yes Primary care physician: [facility] Course: History of present is illness: 76-year-old female with past medical history significant for prediabetes, hypertension, possible history of anesthesia chronic kidney disease. Patient presented to emergency room with her daughter was altered mental status. The patient has been having symptoms for the past 3 weeks and presented to the emergency room 3 times already. Daughter stated that she was having episodes of nausea and vomiting alternating with weakness and altered mental status. The patient daughter stated that before 3 weeks ago the patient was normal and very active. The daughter stated that she has been having difficulty ambulating was leaning to the right. The patient also had multiple complaints including headache and visual changes. Patient is only alert oriented to herself unable to give me good history secondary to altered mental status. But she denies any chest pain or shortness of breath. She is nauseous. Workup in emergency room showed evidence of hypodense mass within the anterior corpus callosum measuring 5.1 cm 3.02.1 cm with mild hydrocephalus of the bilateral lateral ventricles. Evidence of acute kidney injury secondary to decreased oral intake and dehydration. Physical examination on discharge: General: Pleasantly confused Derm: warm, dry Head: atraumatic, normocephalic, symmetric Eyes: EOMI, no lid lag, anicteric sclera Mouth: no lip lesion, mucus membranes moist Cardiovascular: S1S2 reg, no murmur, positive posterior tibial pulse bilateral, Lungs: CTA bilateral, no rhonchi, no rales , no accessory muscle use Abdominal: soft, nontender to palpation, no guarding, no appreciable organomegaly Ext: no gross muscle atrophy, no edema, no contractures Neuro: Unable to assess secondary to confusion Psych: Alert, patient only alert and oriented to herself Detailed the problem list #Altered mental status, intractable nausea vomiting, weakness secondary to a anterior corpus callosum brain mass. -Most likely a combination of acute metabolic encephalopathy and brain tumor -Nothing by mouth -Patient started on IV Decadron per neurology -Stat MRI with and without contrast ordered -Neurology consultation was placed -Spoke to Dr. Coates for neurosurgery at [facility] recommended the patient to be transferred to [facility]. -Dr. Coates he is accepting physician at [facility] -Neuro checks every 2 hours -Stat Drabek test ordered for the accepting facility #Acute kidney injury -Most likely secondary to prerenal azotemia and decreased oral intake -IV fluids #Hypertension -Lisinopril on hold due to acute kidney injury #History of mild intermittent asthma -No acute exacerbation. Patient satting 97% on room air -Patient on Singulair Patient is transferred to [facility] Patient Condition at Discharge: Fair Plan - Discharge Summary Discharge Rx Participant: No New Discharge Prescriptions: No Action lisinopriL [Zestril] 40 mg PO DAILY Omeprazole 20 mg PO DAILY metFORMIN HCL [Glucophage] 500 mg PO BID #60 tab Ondansetron Odt [Zofran Odt] 4 mg PO Q8HR PRN #10 tab PRN Reason: Nausea Oxybutynin Chloride [Oxybutynin Chloride ER] 10 mg PO DAILY Montelukast Sodium [Singulair] 10 mg PO HS Ketoconazole 2% Cream [Nizoral 2%] 1 applic TOPICAL BID PRN PRN Reason: Skin Irritation-Groin Area Folic Acid 1 mg PO DAILY Albuterol Sulfate [Albuterol Sulfate Hfa] 2 puff PO RT-Q4H PRN PRN Reason: Shortness Of Breath traZODone HCL 150 mg PO HS Discharge Medication List Ondansetron Odt [Zofran Odt] 4 mg PO Q8HR PRN #10 tab 12/27/21 [Rx] metFORMIN HCL [Glucophage] 500 mg PO BID #60 tab 12/27/21 [Rx] Albuterol Sulfate [Albuterol Sulfate Hfa] 2 puff PO RT-Q4H PRN 01/17/22 [History] Folic Acid 1 mg PO DAILY 01/17/22 [History] Ketoconazole 2% Cream [Nizoral 2%] 1 applic TOPICAL BID PRN 01/17/22 [History] Montelukast Sodium [Singulair] 10 mg PO HS 01/17/22 [History] Omeprazole 20 mg PO DAILY 01/17/22 [History] Oxybutynin Chloride [Oxybutynin Chloride ER] 10 mg PO DAILY 01/17/22 [History] lisinopriL [Zestril] 40 mg PO DAILY 01/17/22 [History] traZODone HCL 150 mg PO HS 01/17/22 [History] Follow up Appointment(s)/Referral(s): Eric Brenner DO [Primary Care Provider] - 1-2 days Patient Instructions/Handouts: Altered Mental Status (ED)
[2022-01-17] MEDS ORDERED: CLOTRIMAZOLE 1% CREAM 30 GM TUBE TOPICAL PRN (11:41)
[2022-01-17] MEDS ORDERED: ALBUTEROL NEBULIZED 2.5 MG/3 ML INHALATION PRN (11:41)
[2022-01-17] MEDS ORDERED: ONDANSETRON ODT 4 MG TAB PO PRN (11:41)
[2022-01-17 14:42] VITALS: BP 131/80; PULSE 77; RESP 16; TEMP 98.3
[2022-01-17] MEDS ORDERED: MONTELUKAST 10 MG TAB PO SCH (21:00)
[2022-01-17] MEDS ORDERED: traZODone HCL 50 MG TAB PO SCH (21:00)
[2022-01-18] MEDS ORDERED: FOLIC ACID 1 MG TAB PO SCH (09:00)
[2022-01-18] MEDS ORDERED: ENOXAPARIN 30 MG/0.3 ML SYRINGE SQ SCH (09:00)
[2022-01-18] MEDS ORDERED: PANTOPRAZOLE 40 MG/10 ML VIAL IVP SCH (09:00)
[2022-01-18] MEDS ORDERED: OXYBUTYNIN 10 MG TAB.ER.24 PO SCH (09:00)
== END 2022-01-17 15:31 | disposition short-term general hospital (02) | DRG 54 ==
LOC: EC 02:18 → 4SSUR 06:50 → OBSVTOIN 11:32
PROVIDERS: ADMIT Internal Medicine; ATTEND Internal Medicine
DX: D43.2 Neoplasm of uncertain behavior of brain, unspecified (principal); G93.41 Metabolic encephalopathy; G93.5 Compression of brain; N17.9 Acute kidney failure, unspecified; G91.9 Hydrocephalus, unspecified; I12.9 Hypertensive chronic kidney disease with stage 1 through stage 4 chronic kidney disease, or unspecified chronic kidney disease; N18.9 Chronic kidney disease, unspecified; J45.20 Mild intermittent asthma, uncomplicated; I44.7 Left bundle-branch block, unspecified; E86.0 Dehydration; F03.90 Unspecified dementia, unspecified severity, without behavioral disturbance, psychotic disturbance, mood disturbance, and anxiety; J44.9 Chronic obstructive pulmonary disease, unspecified; E66.9 Obesity, unspecified; Z68.28 Body mass index [BMI] 28.0-28.9, adult; E11.22 Type 2 diabetes mellitus with diabetic chronic kidney disease; Z79.84 Long term (current) use of oral hypoglycemic drugs; Z79.899 Other long term (current) drug therapy
CPT/HCPCS: 36415; 70450; 71045; 80053; 82140; 83605; 84443; 84484; 85025; 87635; 93005; 99285

== ENCOUNTER 2022-02-14 17:03 | Inpatient (IN) | payer MEDICARE ==
[2022-02-14] MEDS ORDERED: levETIRAcetam IV 2,000 MG in SALINE 1 100ML.BAG IVPB STA (17:10)
[2022-02-14] MEDS ORDERED: levETIRAcetam IV 2,000 MG in SODIUM CHLORIDE 0.9% 250 ML IVPB STA (17:13)
--- NOTE | 2022-02-14 17:34 | ED ---
General Adult HPI - General Stated complaint: Seizure Time Seen by Provider: 02/14/22 17:08 Source: family, EMS, RN notes reviewed, old records reviewed Mode of arrival: EMS - History of Present Illness Initial comments: Patient is a 76-year-old female with past medical history remarkable for COPD, hypertension, diabetes, recently diagnosed glioblastoma who presents emergency Department with a breakthrough seizure. Was on seizure prophylaxis medications, Right home. Seizure was witnessed by family. Was generalized tonic-clonic. Did have loss of bowels. Has been confused since the seizure. Baseline is confusion for the patient but she normally is able to talk. Currently is not speaking since the seizure. But her alertness seems to be improving. He was being evaluated at [facility] for her brain cancer. Patient remains confused and is a poor historian at this time. Patient's family presented to the emergency department provide further information. Patient's current mental status is her baseline since multiple hospitalizations for the last few months after being diagnosed with her brain tumor. Biopsy was done at [place]. There was discussion that she should foll ow up with oncology which has not happened yet. Family believes that comfort care is best for the patient. They're looking to start the patient on hospice. They'd like to make her DNR/DNI. - Related Data Home Medications Medication Instructions Recorded Confirmed Albuterol Sulfate [Albuterol 2 puff PO RT-Q4H PRN 01/17/22 02/14/22 Sulfate Hfa] Folic Acid 1 mg PO DAILY 01/17/22 02/14/22 Montelukast Sodium [Singulair] 10 mg PO HS 01/17/22 02/14/22 Omeprazole 20 mg PO DAILY 01/17/22 02/14/22 lisinopriL [Zestril] 40 mg PO DAILY 01/17/22 02/14/22 Acetaminophen [Tylenol] 650 mg PO Q6H PRN 02/14/22 02/14/22 Fluconazole [Diflucan] 100 mg PO DAILY 02/14/22 02/14/22 Metoprolol Tartrate [Lopressor] 25 mg PO BID 02/14/22 02/14/22 Mirtazapine 7.5 mg PO HS 02/14/22 02/14/22 Nystatin 100,000 Unit/ml Susp 5 ml PO QID 02/14/22 02/14/22 [Mycostatin Oral Susp] [place]-3/Dha/Epa/Fish Oil [Fish Oil 2 cap PO DAILY 02/14/22 02/14/22 500 mg Softgel] dexAMETHasone 4 mg PO BID 02/14/22 02/14/22 levETIRAcetam [Keppra] 500 mg PO Q12HR 02/14/22 02/14/22 traZODone HCL [Desyrel] 50 mg PO HS 02/14/22 02/14/22 Allergies Allergy/AdvReac Type Severity Reaction Status Date / Time No Known Allergies Allergy Verified 02/14/22 20:16 Review of Systems ROS Statement: Those systems with pertinent positive or pertinent negative responses have been documented in the HPI. ROS Other: All systems not noted in ROS Statement are negative. Past Medical History Past Medical History: COPD, Hypertension Additional Past Medical History / Comment(s): Pre-diabetic History of Any Multi-Drug Resistant Organisms: None Reported Past Surgical History: No Surgical Hx Reported Past Anesthesia/Blood Transfusion Reactions: No Reported Reaction Past Psychological History: Depression Smoking Status: Never smoker Past Alcohol Use History: None Reported Past Drug Use History: None Reported General Exam - General Exam Comments Initial Comments: General: Appears in no acute distress. HEAD: Healing surgical site over the patient's scalp from the biopsy site. Maria E are intact. Actively healing. No signs of infection. EYES: PERRLA, EOMI, conjunctiva normal, no discharge. Peoples 3 mm and equal bilaterally. ENT: Hearing grossly intact, Thrush is present in the oropharynx. RESPIRATORY: Clear breath sounds bilaterally. No wheezes, rales, or rhonchi. C/V: Regular rate and rhythm. S1 and S2 auscultated, no edema, peripheral pulses 2+ and intact throughout ABD: Abd is soft, nontender, nondistended EXT: no obvious deformity SKIN: No rashes or lesions observed on exposed skin. NEURO: Alert but not oriented. At her baseline. Moving all 4 extremities. No obvious focal deficits. Course Vital Signs 02/14/22 02/14/22 02/14/22 17:08 18:58 21:48 Temperature 96.7 F L Pulse Rate 69 72 68 Respiratory 18 16 18 Rate Blood Pressure 169/72 160/69 O2 Sat by Pulse 95 95 Oximetry Medical Decision Making - Medical Decision Making Based on the patient's presentation and physical exam, does appear she expressed seizure in the setting of brain cancer. Family is looking to make the patient comfort care only. They do not plan on taking chemoradiation or further brain surgery. Patient is diagnosed the [facility]. I discussed with them the option of being transferred back to [place] that they would like the patient remained close to home. As they do not plan on any intervention, do believe this is appropriate. With her history of brain cancer we obtain a CT of the brain as this is her first known seizure since the diagnosis. She was on Keppra empirically and I will start her on a IV bolus Keppra. Seizure precautions were ordered. Basic labs will be obtained. CT brain will be obtained. There were in agreement with this plan. Vital signs within normal limits. EKG showed no signs of acute ischemia. Laboratory studies are remarkable for a thrombocytopenia of 77. Patient has a hyponatremia of 122 and hypochloremia at 92 which per family is chronic. Patient is slightly elevated AST and ALT. Urine shows 2+ glucose. Blood sugar level is slightly elevated to 171. Remainder the labs are unremarkable. CT imaging revealed no acute intracranial process, with redemonstrated mass and edema that is unchanged. On re-evaluation, exam is unchanged. No seizures while she has been in the department. Like to admitted to the hospital for hyponatremia, hospice evaluation, as well as evaluation by neurology. Family was in agreement this plan. CODE STATUS was updated to DNR/DNI. Hospice was consulted. I consulted neurology and spoke with Dr. Call who agreed to evaluate the patient here in the hospital. Recommended increasing Keppra dosing to 750 mg twice a day. I spoke with the admitting physician, Dr. yao who accepted the patient was in agreement this plan. Patient was admitted in stable condition. Patient was started on IV fluids to treat her hyponatremia. - Lab Data Result diagrams: 02/14/22 17:54 02/14/22 17:54 Lab Results 02/14/22 02/14/22 02/14/22 Range/Units 17:44 17:54 17:54 WBC 8.6 (3.8-10.6) k/uL RBC 5.11 (3.80-5.40) m/uL Hgb 14.9 (11.4-16.0) gm/dL Hct 45.2 (34.0-46.0) % MCV 88.5 (80.0-100.0) fL MCH 29.2 (25.0-35.0) pg MCHC 33.0 (31.0-37.0) g/dL RDW 12.5 (11.5-15.5) % Plt Count 77 L D (150-450) k/uL MPV 8.0 Neutrophils % 90 % Lymphocytes % 6 % Monocytes % 3 % Eosinophils % 0 % Basophils % 0 % Neutrophils # 7.7 (1.3-7.7) k/uL Lymphocytes # 0.6 L (1.0-4.8) k/uL Monocytes # 0.3 (0-1.0) k/uL Eosinophils # 0.0 (0-0.7) k/uL Basophils # 0.0 (0-0.2) k/uL Sodium (137-145) mmol/L Potassium (3.5-5.1) mmol/L Chloride (98-107) mmol/L Carbon Dioxide (22-30) mmol/L Anion Gap mmol/L BUN (7-17) mg/dL Creatinine (0.52-1.04) mg/dL Est GFR (CKD-EPI)AfAm (>60 ml/min/1.73 sqM) Est GFR (CKD-EPI)NonAf (>60 ml/min/1.73 sqM) Glucose (74-99) mg/dL POC Glucose (mg/dL) 164 H (70-110) mg/dL POC Glu Chief Of Vital Statistics ID Jessie Farrell Calcium (8.4-10.2) mg/dL Magnesium (1.6-2.3) mg/dL Total Bilirubin (0.2-1.3) mg/dL AST (14-36) U/L ALT (4-34) U/L Alkaline Phosphatase (38-126) U/L Total Protein (6.3-8.2) g/dL Albumin (3.5-5.0) g/dL Urine Color Yellow Urine Appearance Clear (Clear) Urine pH 6.0 (5.0-8.0) Ur Specific [place] 1.022 (1.001-1.035) Urine Protein Trace H (Negative) Urine Glucose (UA) 2+ H (Negative) Urine Ketones Negative (Negative) Urine Blood Negative (Negative) Urine Nitrite Negative (Negative) Urine Bilirubin Negative (Negative) Urine Urobilinogen 3.0 (<2.0) mg/dL Ur Leukocyte Esterase Negative (Negative) Salicylates mg/dL Urine Opiates Screen Not Detected (NotDetected) Ur Oxycodone Screen Not Detected (NotDetected) Urine Methadone Screen Not Detected (NotDetected) Ur Propoxyphene Screen Not Detected (NotDetected) Acetaminophen ug/mL Ur Barbiturates Screen Not Detected (NotDetected) U Tricyclic Antidepress Not Detected (NotDetected) Ur Phencyclidine Scrn Not Detected (NotDetected) Ur Amphetamines Screen Not Detected (NotDetected) U Methamphetamines Scrn Not Detected (NotDetected) U Benzodiazepines Scrn Not Detected (NotDetected) Urine Cocaine Screen Not Detected (NotDetected) U Marijuana (THC) Screen Not Detected (NotDetected) Serum Alcohol mg/dL 02/14/22 Range/Units 17:54 WBC (3.8-10.6) k/uL RBC (3.80-5.40) m/uL Hgb (11.4-16.0) gm/dL Hct (34.0-46.0) % MCV (80.0-100.0) fL MCH (25.0-35.0) pg MCHC (31.0-37.0) g/dL RDW (11.5-15.5) % Plt Count (150-450) k/uL MPV Neutrophils % % Lymphocytes % % Monocytes % % Eosinophils % % Basophils % % Neutrophils # (1.3-7.7) k/uL Lymphocytes # (1.0-4.8) k/uL Monocytes # (0-1.0) k/uL Eosinophils # (0-0.7) k/uL Basophils # (0-0.2) k/uL Sodium 122 L (137-145) mmol/L Potassium 5.0 (3.5-5.1) mmol/L Chloride 92 L (98-107) mmol/L Carbon Dioxide 24 (22-30) mmol/L Anion Gap 6 mmol/L BUN 36 H (7-17) mg/dL Creatinine 0.85 (0.52-1.04) mg/dL Est GFR (CKD-EPI)AfAm 78 (>60 ml/min/1.73 sqM) Est GFR (CKD-EPI)NonAf 68 (>60 ml/min/1.73 sqM) Glucose 171 H (74-99) mg/dL POC Glucose (mg/dL) (70-110) mg/dL POC Glu Chief Of Vital Statistics ID Calcium 8.7 (8.4-10.2) mg/dL Magnesium 1.7 (1.6-2.3) mg/dL Total Bilirubin 1.4 H (0.2-1.3) mg/dL AST 62 H (14-36) U/L ALT 172 H (4-34) U/L Alkaline Phosphatase 100 (38-126) U/L Total Protein 6.3 (6.3-8.2) g/dL Albumin 3.4 L (3.5-5.0) g/dL Urine Color Urine Appearance (Clear) Urine pH (5.0-8.0) Ur Specific [place] (1.001-1.035) Urine Protein (Negative) Urine Glucose (UA) (Negative) Urine Ketones (Negative) Urine Blood (Negative) Urine Nitrite (Negative) Urine Bilirubin (Negative) Urine Urobilinogen (<2.0) mg/dL Ur Leukocyte Esterase (Negative) Salicylates <1.0 mg/dL Urine Opiates Screen (NotDetected) Ur Oxycodone Screen (NotDetected) Urine Methadone Screen (NotDetected) Ur Propoxyphene Screen (NotDetected) Acetaminophen <10.0 ug/mL Ur Barbiturates Screen (NotDetected) U Tricyclic Antidepress (NotDetected) Ur Phencyclidine Scrn (NotDetected) Ur Amphetamines Screen (NotDetected) U Methamphetamines Scrn (NotDetected) U Benzodiazepines Scrn (NotDetected) Urine Cocaine Screen (NotDetected) U Marijuana (THC) Screen (NotDetected) Serum Alcohol <10 mg/dL - EKG Data -: EKG Interpreted by Me EKG Comments: 12-lead Electrocardiogram Interpretation Note EKG was reviewed and interpreted by myself. 12-lead ECG performed at 1726 is interpreted by me as revealing normal sinus rhythm at a rate of 67 beats per minute. [place] is normal. [place] interval is 130 ms, QRS duration is 102 ms, QTc is 419 ms.. There were no ST or T wave abnormalities to suggest myocardial ischemia or injury. R wave progression across the precordium was satisfactory. By my interpretation this EKG is non-diagnostic for acute ischemia. Disposition Clinical Impression: Seizure, Glioblastoma, Dehydration, Hyponatremia, Thrush Disposition: ADMITTED IP TO THIS HOSP Condition: Stable Time of Disposition: 19:50
[2022-02-14 18:01] LABS: Glucose,Whole Blood 164 mg/dL (70-110)
[2022-02-14 18:04] LABS: Appearance,Urine Clear (Clear); Basophils % (A) 0 %; Bilirubin,Urine Negative (Negative); Blood,Urine Negative (Negative); Color,Urine Yellow; Eosinophils % (A) 0 %; Glucose,Urine (UA) 2+ (Negative); HCT 45.2 % (34.0-46.0); HGB 14.9 gm/dL (11.4-16.0); Ketones,Urine Negative (Negative); Leukocyte Esterase,Urine Negative (Negative); Lymphocytes # (A) 0.6 k/uL (1.0-4.8); Lymphocytes % (A) 6 %; MCH 29.2 pg (25.0-35.0); MCV 88.5 fL (80.0-100.0); Monocytes # (A) 0.3 k/uL (0-1.0); Monocytes % (A) 3 %; Neutrophils # (A) 7.7 k/uL (1.3-7.7); Neutrophils % (A) 90 %; Nitrite,Urine Negative (Negative); Protein,Urine Trace (Negative); RBC 5.11 m/uL (3.80-5.40); RDW 12.5 % (11.5-15.5); Specific Gravity,Urine 1.022 (1.001-1.035); WBC 8.6 k/uL (3.8-10.6)
[2022-02-14 18:07] LABS: Platelet Count 77 k/uL (150-450)
[2022-02-14 18:15] LABS: ALT 172 U/L (4-34); AST 62 U/L (14-36); Acetaminophen <10.0 ug/mL; African American GFR (CKD) 78 (>60 ml/min/1.73 sqM); Albumin 3.4 g/dL (3.5-5.0); Alcohol <10 mg/dL; Alkaline Phosphatase 100 U/L (38-126); Anion Gap 6 mmol/L; Blood Urea Nitrogen 36 mg/dL (7-17); Calcium 8.7 mg/dL (8.4-10.2); Carbon Dioxide 24 mmol/L (22-30); Chloride 92 mmol/L (98-107); Glucose 171 mg/dL (74-99); Magnesium 1.7 mg/dL (1.6-2.3); Non-African American GFR(CKD) 68 (>60 ml/min/1.73 sqM); Salicylate <1.0 mg/dL; Sodium 122 mmol/L (137-145); Total Bilirubin 1.4 mg/dL (0.2-1.3); Total Protein 6.3 g/dL (6.3-8.2)
[2022-02-14 18:17] LABS: Amphetamine Screen,Urine Not Detected (NotDetected); Barbiturate Screen,Urine Not Detected (NotDetected); Benzodiazepines Screen,Urine Not Detected (NotDetected); Cocaine Screen,Urine Not Detected (NotDetected); Methadone Screen, Urine Not Detected (NotDetected); Opiate Screen,Urine Not Detected (NotDetected); Oxycodone Screen, Urine Not Detected (NotDetected); Phencyclidine Screen,Urine Not Detected (NotDetected); Tricyclic Antidepressant,Urine Not Detected (NotDetected); Urn Cannabinoid Scrn Not Detected (NotDetected)
--- NOTE | 2022-02-14 18:48 | CT ---
EXAMINATION TYPE: CT brain wo con DATE OF EXAM: 02/14/2022 COMPARISON: 01/17/2022 HISTORY: Seizure activity, recently diagnosed with glioblastoma, bx CT DLP: 1142.4 mGycm Automated exposure control for dose reduction was used. There is a midline mass at the anterior aspect of the corpus callosum which measures approximately 3. 5 cm. There is some effacement of the sulci and probably some diffuse cerebral edema. No midline shif t. No evidence of intracranial hemorrhage. Calvarium is intact. IMPRESSION: Midline low density mass at the anterior corpus callosum extending into the lateral ventricles which is consistent with tumor and not significantly different than recent exam. There is decrease in the sulcal pattern of the brain that could relate to some diffuse cerebral edema . Unchanged.
[2022-02-14] MEDS ORDERED: SODIUM CHLORIDE 0.9% 1,000 ML IV STA (19:31)
[2022-02-14] MEDS ORDERED: NALOXONE 0.4 MG/ML 1 ML VIAL IV PRN (20:04)
[2022-02-14] MEDS ORDERED: ONDANSETRON 4 MG/2 ML VIAL IVP PRN (20:37)
[2022-02-14] MEDS ORDERED: levETIRAcetam IV 750 MG in SODIUM CHLORIDE 0.9% 100 ML IVPB SCH (21:00)
[2022-02-14] MEDS: METOPROLOL TARTRATE 25 MG TAB PO SCH (21:33)
[2022-02-14] MEDS: NYSTATIN 100,000 UNIT/ML SUSP 500,000 UNIT/5 ML CUP PO SCH (21:33)
[2022-02-14] MEDS: MIRTAZAPINE 15 MG TAB PO SCH (21:33)
[2022-02-14] MEDS: dexAMETHasone 4 MG TAB PO SCH (21:33)
[2022-02-14] MEDS: MONTELUKAST 10 MG TAB PO SCH (21:34)
--- NOTE | 2022-02-15 02:35 | P.HPIM ---
History of Present Illness The patient is 76-year-old female with a PMH of recently diagnosed glioblastoma, type II DM, hypertension, COPD who was brought into the emergency room by EMS for breakthrough seizure. The patient recently been started on antiseizure medications after diagnosis of her brain malignancy. Procedure was reportedly tonic-clonic, occurring at around 3 PM earlier today, witnessed by her family, with resulting bowel incontinence. The history is provided by the daughter at the bedside as the patient is now at baseline only oriented to person. The patient was initially admitted to [facility] in 01/17 for altered mental status and was diagnosed with a brain mass. She was subsequently transferred to [facility] where she underwent a brain biopsy revealing the mass to be a glioblastoma. The family discussed the case in great detail with neurosurgery at [place] as well as oncology, and decided to not pursue any treatments. She was hospitalized for 2 weeks and subsequently was discharged home, however her condition worsened and she required hospitalization with subsequent discharge this past Tuesday. The daughter reports that during the last 1 month, the patient's overall condition has deteriorated significantly, and that she is now only oriented to self and is essentially bedbound. She also reports the patient has not been eating or drinking much due to thrush that the family has noticed on her tongue. Daughter repeatedly states that the family wishes for the patient to be made hospice and comfort care. They requested a hospice consult, and noted that the patient would not have wanted to pursue aggressive therapy in light of the poor prognosis of her malignancy. The patient reported hypogastric abdominal discomfort but denied any additional complaints. Laboratory evaluation in the emergency room was remarkable for sodium 122, chloride 92, BUN 36, total bilirubin 1.4, and platelet count 77. CT brain revealed a mass at the corpus callosum consistent with tumor not significantly different from recent exam with findings that could relate to some diffuse cerebral edema unchanged from prior. EKG revealed sinus rhythm at 67 bpm. Review of systems: Pertinent positives and negatives as discussed in HPI, a complete review of systems was performed and all other systems are negative. Physical examination: General: Iill-appearing female, no distress, appears at stated age, normal we ight Derm: no unusual rashes/lesions, warm, left sided scalp tommy in place Head: atraumatic, normocephalic, symmetric Eyes: EOMI, no lid lag, anicteric sclera, pupils equal round reactive to light ENT: Nose and ears atraumatic Neck: No cervical lymphadenopathy, trachea midline, supple Mouth: no lip lesion, mucus membranes moist, thrush noted Cardiovascular: S1S2 reg, no murmur, positive dorsalis pedis pulse bilateral, no edema Lungs: CTA bilateral, no rhonchi, no rales, no accessory muscle use Abdominal: soft, nontender to palpation, no guarding Ext: muscle strength 3 out of 5 in all 4 extremities grossly, no gross muscle atrophy, no contractures, Neuro: CN II-XI grossly intact, no gross focal neuro deficits Psych: Awake, oriented only to self Assessment/plan Breakthrough seizure while on prophylactic Keppra -Neurology consulted -Seizure precautions -Continue with increased 750 mg every 12 hours for now IV Hyponatremia, likely due to poor oral intake -Continue with IV fluids -Monitor BMP Glioblastoma, recently diagnosed -Family wishes for patient to be on comfort care -Consult hospice Thrush -Nystatin swish and swallow -Continue home fluconazole Thrombocytopenia, likely due to malignancy -Monitor for now Chronic conditions: Type II DM, COPD -Insulin sliding scale blood glucose monitoring -Continue with home medications DVT prophylaxis -Lovenox The patient is admitted with an anticipated greater than 2 midnight stay for evaluation of seizure. CODE STATUS: No code Discussed with: Patient Anticipated discharge date: To [address]: Home Past Medical History Past Medical History: COPD, Hypertension Additional Past Medical History / Comment(s): Pre-diabetic History of Any Multi-Drug Resistant Organisms: None Reported Past Surgical History: No Surgical Hx Reported Past Anesthesia/Blood Transfusion Reactions: No Reported Reaction Past Psychological History: Depression Smoking Status: Never smoker Past Alcohol Use History: None Reported Past Drug Use History: None Reported - Past Family History Father Family Medical History: Hypertension Medications and Allergies Home Medications Medication Instructions Recorded Confirmed Type Albuterol Sulfate [Albuterol 2 puff PO RT-Q4H PRN 01/17/22 02/14/22 History Sulfate Hfa] Folic Acid 1 mg PO DAILY 01/17/22 02/14/22 History Montelukast Sodium [Singulair] 10 mg PO HS 01/17/22 02/14/22 History Omeprazole 20 mg PO DAILY 01/17/22 02/14/22 History lisinopriL [Zestril] 40 mg PO DAILY 01/17/22 02/14/22 History Acetaminophen [Tylenol] 650 mg PO Q6H PRN 02/14/22 02/14/22 History Fluconazole [Diflucan] 100 mg PO DAILY 02/14/22 02/14/22 History Metoprolol Tartrate [Lopressor] 25 mg PO BID 02/14/22 02/14/22 History Mirtazapine 7.5 mg PO HS 02/14/22 02/14/22 History Nystatin 100,000 Unit/ml Susp 5 ml PO QID 02/14/22 02/14/22 History [Mycostatin Oral Susp] [place]-3/Dha/Epa/Fish Oil [Fish Oil 2 cap PO DAILY 02/14/22 02/14/22 History 500 mg Softgel] dexAMETHasone 4 mg PO BID 02/14/22 02/14/22 History levETIRAcetam [Keppra] 500 mg PO Q12HR 02/14/22 02/14/22 History traZODone HCL [Desyrel] 50 mg PO HS 02/14/22 02/14/22 History Allergies Allergy/AdvReac Type Severity Reaction Status Date / Time No Known Allergies Allergy Verified 02/14/22 20:16 Physical Exam Vitals: Vital Signs Temp Pulse Resp BP Pulse Ox 02/14/22 21:48 68 18 02/14/22 18:58 72 16 160/69 95 02/14/22 17:08 96.7 F L 69 18 169/72 95 Intake and Output 02/14/22 02/14/22 02/14/22 06:59 14:59 22:59 Other: Weight 72.575 kg Results CBC & Chem 7: 02/14/22 17:54 02/14/22 17:54 Labs: Abnormal Lab Results - Last 24 Hours (Table) 02/14/22 02/14/22 02/14/22 Range/Units 17:44 17:54 17:54 Plt Count 77 L D (150-450) k/uL Lymphocytes # 0.6 L (1.0-4.8) k/uL Sodium (137-145) mmol/L Chloride (98-107) mmol/L BUN (7-17) mg/dL Glucose (74-99) mg/dL POC Glucose (mg/dL) 164 H (70-110) mg/dL Total Bilirubin (0.2-1.3) mg/dL AST (14-36) U/L ALT (4-34) U/L Albumin (3.5-5.0) g/dL Urine Protein Trace H (Negative) Urine Glucose (UA) 2+ H (Negative) 02/14/22 Range/Units 17:54 Plt Count (150-450) k/uL Lymphocytes # (1.0-4.8) k/uL Sodium 122 L (137-145) mmol/L Chloride 92 L (98-107) mmol/L BUN 36 H (7-17) mg/dL Glucose 171 H (74-99) mg/dL POC Glucose (mg/dL) (70-110) mg/dL Total Bilirubin 1.4 H (0.2-1.3) mg/dL AST 62 H (14-36) U/L ALT 172 H (4-34) U/L Albumin 3.4 L (3.5-5.0) g/dL Urine Protein (Negative) Urine Glucose (UA) (Negative)
[2022-02-15 07:10] LABS: African American GFR (CKD) >90 (>60 ml/min/1.73 sqM); Anion Gap 2 mmol/L; Basophils % (A) 0 %; Blood Urea Nitrogen 30 mg/dL (7-17); Calcium 8.4 mg/dL (8.4-10.2); Carbon Dioxide 22 mmol/L (22-30); Chloride 97 mmol/L (98-107); Eosinophils % (A) 0 %; Glucose 112 mg/dL (74-99); HCT 42.3 % (34.0-46.0); HGB 14.2 gm/dL (11.4-16.0); Lymphocytes # (A) 0.7 k/uL (1.0-4.8); Lymphocytes % (A) 11 %; MCH 29.4 pg (25.0-35.0); MCHC 33.6 g/dL (31.0-37.0); MCV 87.5 fL (80.0-100.0); Mean Platelet Volume 8.1; Monocytes # (A) 0.3 k/uL (0-1.0); Monocytes % (A) 4 %; Neutrophils # (A) 5.4 k/uL (1.3-7.7); Neutrophils % (A) 84 %; Non-African American GFR(CKD) 86 (>60 ml/min/1.73 sqM); RBC 4.83 m/uL (3.80-5.40); RDW 12.7 % (11.5-15.5); Sodium 121 mmol/L (137-145); WBC 6.4 k/uL (3.8-10.6)
[2022-02-15 07:13] LABS: Platelet Count 77 k/uL (150-450)
[2022-02-15 07:28] LABS: Potassium 5.4 mmol/L (3.5-5.1)
[2022-02-15] MEDS: INSULIN ASPART (NovoLOG) 100 UNIT/ML VIAL SQ SCH ×4 (08:37→20:57)
[2022-02-15] MEDS: FLUCONAZOLE 100 MG TAB PO SCH (09:53)
[2022-02-15] MEDS: lisinopriL 20 MG TAB PO SCH (09:53)
[2022-02-15] MEDS: ENOXAPARIN 40 MG/0.4 ML SYRINGE SQ SCH ×2 (09:53→11:04)
[2022-02-15] MEDS: levETIRAcetam IV 1,000 MG in SALINE 1 100ML.BAG IVPB SCH ×2 (09:54→21:26)
[2022-02-15] MEDS: PANTOPRAZOLE 40 MG TABLET PO SCH (09:54)
[2022-02-15] MEDS: METOPROLOL TARTRATE 25 MG TAB PO SCH ×2 (09:54→21:20)
--- NOTE | 2022-02-15 10:22 | P.CNNES ---
History of Present Illness Consult date: 02/15/22 Requesting physician: Kai Finnye Reason for Consult: breaktrough seizure History of Present Illness: This is a 76-year-old woman with medical history of brain mass concerning for glioblastoma multiform, possible seizure who presented emergency department because of breakthrough seizure. Some of the history is obtained from patient's daughter who is at bedside. It seems the patient had a seizure activity witnes sed by family home. She had a generalized tonic seizure and lasted about 10 minutes according to daughter. Patient is on home medication of Keppra 500 mg every 12 hours as a seizure prophylaxis. Patient had multiple staring like spells in the past. In our facility she was given a loading dose of Keppra 2gm. She feels patient is doing better compared to yesterday. Regarding her brain cancer the patient had MRI Brain and biopsy at [place] which confirmed she had glioblastoma multiform. She also had routine EEG at [place]. She had hypontremia at [place] and was given salt tablets that improved to 130. It seems family once the patient to start hospice and it they would like the patient to become DO NOT RESUSCITATE/DO NOT INTUBATE. Of note the patient was evaluated by Dr. Abrams on 01/17/2022 and in his note he stated that the patient has a brain mass in the anterior corpus callosum with mild hydrocephalus concerning for glioblastoma multiform. She had episode of staring zoning out and that he stated to rule out seizures. He recommended an EEG MRI of the brain. It seems that the patient was transferred to a higher level of care for neurosurgical evaluation. He started the patient on Keppra 500 mg every 12 hours Some other workup in our facility consisted of: Platelet level is 77,000 Sodium is 120 to repeat it was 121, initial serum glucose is 171 with a POC glucose of 164, magnesium is 1.7, AST of 62 and ALT of 172. Urine drug screen is not detected CT of the head is reported as midline low density mass at the anterior corpus callosum extending into the lateral ventricle which is consistent with a tumor not significantly different than recent exam. It is decreased in the sulcal pattern of the brain that could relate to some diffuse cerebral edema. Unchanged. I personally reviewed the CT of the head and I do agree that the this tumor seems suggestive for follow-up glioblastoma multiform. Review of Systems Review of system: The 12 point system was reviewed and apparent positive and negative per HPI. Past Medical History Past Medical History: COPD, Hypertension Additional Past Medical History / Comment(s): Pre-diabetic History of Any Multi-Drug Resistant Organisms: None Reported Past Surgical History: No Surgical Hx Reported Past Anesthesia/Blood Transfusion Reactions: No Reported Reaction Past Psychological History: Depression Smoking Status: Never smoker Past Alcohol Use History: None Reported Past Drug Use History: None Reported - Past Family History Father Family Medical History: Hypertension Medications and Allergies Home Medications Medication Instructions Recorded Confirmed Type Albuterol Sulfate [Albuterol 2 puff PO RT-Q4H PRN 01/17/22 02/14/22 History Sulfate Hfa] Folic Acid 1 mg PO DAILY 01/17/22 02/14/22 History Montelukast Sodium [Singulair] 10 mg PO HS 01/17/22 02/14/22 History Omeprazole 20 mg PO DAILY 01/17/22 02/14/22 History lisinopriL [Zestril] 40 mg PO DAILY 01/17/22 02/14/22 History Acetaminophen [Tylenol] 650 mg PO Q6H PRN 02/14/22 02/14/22 History Fluconazole [Diflucan] 100 mg PO DAILY 02/14/22 02/14/22 History Metoprolol Tartrate [Lopressor] 25 mg PO BID 02/14/22 02/14/22 History Mirtazapine 7.5 mg PO HS 02/14/22 02/14/22 History Nystatin 100,000 Unit/ml Susp 5 ml PO QID 02/14/22 02/14/22 History [Mycostatin Oral Susp] [place]-3/Dha/Epa/Fish Oil [Fish Oil 2 cap PO DAILY 02/14/22 02/14/22 History 500 mg Softgel] dexAMETHasone 4 mg PO BID 02/14/22 02/14/22 History levETIRAcetam [Keppra] 500 mg PO Q12HR 02/14/22 02/14/22 History traZODone HCL [Desyrel] 50 mg PO HS 02/14/22 02/14/22 History Allergies Allergy/AdvReac Type Severity Reaction Status Date / Time No Known Allergies Allergy Verified 02/14/22 20:16 Physical Examination - Vital Signs Vital Signs: Vital Signs Temp Pulse Resp BP Pulse Ox 02/15/22 07:00 98 F 66 18 133/76 95 02/15/22 02:30 98.1 F 72 18 130/80 94 L 02/14/22 21:48 68 18 02/14/22 18:58 72 16 160/69 95 02/14/22 17:08 96.7 F L 69 18 169/72 95 Intake and Output 02/14/22 02/15/22 02/15/22 22:59 06:59 14:59 Other: Weight 72.575 kg GENERAL: The patient is lying in bed and is not in acute distress. CHEST: The heart rate is regular rate rhythm. No murmurs to auscultation. LUNG: Clear to auscultation bilaterally no wheezing noted throughout. Not labored breathing. ABDOMEN/GI: Bowel sounds present in all 4 quadrants. No tenderness to palpation throughout. NEUROLOGICAL: Somewhat limited because of her cooperation. Higher mental function: The patient is drowsy but is awakeable to voice. Oriented to self, place. With options she correctly stated the correct year but could not answer the month. She is following simple commands. No aphasia or neglect. Cranial nerves: The pupils are round, equal and reactive to light. Visual coon could not assess because of cooperation. Extraocular movement is intact no nystagmus is noted. No facial weakness. No dysarthria. Motor: The strength is hard to assess individual muscles because of cooperation but moving all extremities above gravity. Normal tone and bulk. Cerebellum: Normal finger to nose bilaterally. Sensation: Sensation is normal to touch throughout. Reflexes (right/left): 1+ throughout. Plantars are mute bilaterally. Results - Laboratory Findings CBC and BMP: 02/15/22 06:40 02/15/22 06:40 Abnormal Lab Findings: Abnormal Labs 02/14/22 02/14/22 02/14/22 17:44 17:54 17:54 Plt Count 77 L D Lymphocytes # 0.6 L Sodium Potassium Chloride BUN Glucose POC Glucose (mg/dL) 164 H Total Bilirubin AST ALT Albumin Urine Protein Trace H Urine Glucose (UA) 2+ H 02/14/22 02/15/22 02/15/22 17:54 06:40 06:40 Plt Count 77 L Lymphocytes # 0.7 L Sodium 122 L 121 L Potassium 5.4 H Chloride 92 L 97 L BUN 36 H 30 H Glucose 171 H 112 H POC Glucose (mg/dL) Total Bilirubin 1.4 H AST 62 H ALT 172 H Albumin 3.4 L Urine Protein Urine Glucose (UA) Assessment and Plan Assessment: Breakthrough seizure due to her underlying brain tumor Glioblastoma multiform History of seizure (staring episodes) Thrombocytopenia 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 Because the patient's mentation improved there is no reason to the obtain a routine EEG. Patient is on dexamethasone 4 mg 1 tablet twice a day I started the patient on salt tablet 1gm bid. Patient is on seizure precaution seizure pads Every 4 hours neuro checks The family decided to consult hospice and has made the patient DNR/DNI. Per daughter, they want to make sure the patient is comfortable as possible. The plans discussed with the patient's nurse. Thank you for consultation. Michael Paez M.D. Neuro-hospitalist Time with Patient: Greater than 30
[2022-02-15] MEDS ORDERED: ACETAMINOPHEN TAB 325 MG TAB PO PRN (10:30)
[2022-02-15] MEDS: dexAMETHasone 4 MG TAB PO SCH (11:04)
[2022-02-15] MEDS: NYSTATIN 100,000 UNIT/ML SUSP 500,000 UNIT/5 ML CUP PO SCH ×4 (11:05→22:14)
[2022-02-15] MEDS: SODIUM CHLORIDE TAB 1 GM TAB PO SCH ×2 (11:06→21:20)
[2022-02-15] MEDS ORDERED: LORazepam 1 MG/0.5 ML VIAL IV PRN (11:30)
[2022-02-15 11:51] LABS: Glucose,Whole Blood 118 mg/dL (70-110)
[2022-02-15] MEDS ORDERED: DEXAMETHASONE SOD PHOSPHATE 4 MG/ML 1 ML VIAL IVP STA (11:52)
[2022-02-15] MEDS: MORPHINE SULFATE 4 MG/ML SYRINGE IVP PRN ×2 (12:13→21:30)
[2022-02-15] MEDS ORDERED: METOCLOPRAMIDE 5 MG/ML 2 ML VIAL IVP STA (12:48)
--- NOTE | 2022-02-15 16:33 | P.PN ---
Subjective Progress Note Date: 02/15/22 (delayed charting seen at 10am) The patient is a 76-year-old female with recently diagnosed glioblastoma opted to forgo treatment, type II DM, hypertension, and COPD who presented to the ED for breakthrough seizure. The patient recently been started on antiseizure medications after diagnosis of GBM. The patient was initially admitted to [facility] in 01/17 for altered mental status and was diagnosed with a brain mass. She was subsequently transferred to [facility] where she underwent a brain biopsy revealing the mass to be a glioblastoma. The family discussed the case in great detail with neurosurgery at [place] as well as oncology, and decided to not pursue any treatments. She was hospitalized for 2 weeks and subsequently was discharged home, however her condition worsened and she required hospitalization with subsequent discharge this past Tuesday. In the ED she underwent a laboratory evaluation in the emergency room which was remarkable for sodium 122, chloride 92, BUN 36, total bilirubin 1.4, and platelet count 77. CT brain revealed a mass at the corpus callosum consistent with tumor not significantly different from recent exam with findings that could relate to some diffuse cerebral edema unchanged from prior. EKG revealed sinus rhythm at 67 bpm. Family asked for a hospice consult. Seen by neurology and started on keppra and salt tablets. Patient seen and examined at bedside. She reports having a small headache and denies nausea, vomiting, pain. D/W Hospice and [facility]. Plan is for home with hospice in AM, equiptment is getting set up. General: Nontoxic, no distress, appears at stated age Derm: warm, dry Head: atraumatic, normocephalic, symmetric Eyes: EOMI, no lid lag, anicteric sclera Mouth: no lip lesion, mucus membranes moist Cardiovascular: S1S2 reg, no murmur, positive posterior tibial pulse bilateral, Lungs: Coarse breath sounds bilateral, no rhonchi, no rales , no accessory muscle use Ext: no gross muscle atrophy, no edema, no contractures Neuro: CN II-XI grossly intact, no focal neuro deficits Psych: Lethargic, but awakes to voice Assessment/plan: Breakthrough seizure while on prophylactic Keppra due to underlysing underlying glioblastoma - diffuse cerebral edema - d/w hospice plan is for home in AM if no additional seizures. -Neurology recs appreciated and keppra increased to 1000 mg BID (liquid on disch arge) - home with rectal valium -Seizure precautions - conitnue dexamethasone Hyponatremia, likely due to poor oral intake - IV fluids -Monitor BMP - encourage oral intake - can conitnue salt tabs Thrush -Nystatin swish and swallow -fluconazole Thrombocytopenia, likely due to malignancy -Monitor for now Chronic conditions: Type II DM, COPD -Insulin sliding scale blood glucose monitoring -Continue with home medications DVT prophylaxis - SCDs Objective - Vital Signs Vital signs: Vital Signs Temp 98.2 F 02/15/22 14:00 Pulse 62 02/15/22 14:00 Resp 16 02/15/22 14:00 BP 134/74 02/15/22 14:00 Pulse Ox 96 02/15/22 14:00 FiO2 Intake & Output 02/14/22 02/15/22 02/15/22 18:59 06:59 18:59 Output Total 75 Balance -75 Weight 72.575 kg 72.575 kg Output: Emesis 75 - Labs CBC & Chem 7: 02/15/22 06:40 02/15/22 06:40 Labs: Abnormal Lab Results - Last 24 Hours (Table) 02/14/22 02/14/22 02/14/22 Range/Units 17:44 17:54 17:54 Plt Count 77 L D (150-450) k/uL Lymphocytes # 0.6 L (1.0-4.8) k/uL Sodium (137-145) mmol/L Potassium (3.5-5.1) mmol/L Chloride (98-107) mmol/L BUN (7-17) mg/dL Glucose (74-99) mg/dL POC Glucose (mg/dL) 164 H (70-110) mg/dL Total Bilirubin (0.2-1.3) mg/dL AST (14-36) U/L ALT (4-34) U/L Albumin (3.5-5.0) g/dL Urine Protein Trace H (Negative) Urine Glucose (UA) 2+ H (Negative) 02/14/22 02/15/22 02/15/22 Range/Units 17:54 06:40 06:40 Plt Count 77 L (150-450) k/uL Lymphocytes # 0.7 L (1.0-4.8) k/uL Sodium 122 L 121 L (137-145) mmol/L Potassium 5.4 H (3.5-5.1) mmol/L Chloride 92 L 97 L (98-107) mmol/L BUN 36 H 30 H (7-17) mg/dL Glucose 171 H 112 H (74-99) mg/dL POC Glucose (mg/dL) (70-110) mg/dL Total Bilirubin 1.4 H (0.2-1.3) mg/dL AST 62 H (14-36) U/L ALT 172 H (4-34) U/L Albumin 3.4 L (3.5-5.0) g/dL Urine Protein (Negative) Urine Glucose (UA) (Negative) 02/15/22 Range/Units 11:49 Plt Count (150-450) k/uL Lymphocytes # (1.0-4.8) k/uL Sodium (137-145) mmol/L Potassium (3.5-5.1) mmol/L Chloride (98-107) mmol/L BUN (7-17) mg/dL Glucose (74-99) mg/dL POC Glucose (mg/dL) 118 H (70-110) mg/dL Total Bilirubin (0.2-1.3) mg/dL AST (14-36) U/L ALT (4-34) U/L Albumin (3.5-5.0) g/dL Urine Protein (Negative) Urine Glucose (UA) (Negative)
[2022-02-15 17:03] LABS: Glucose,Whole Blood 113 mg/dL (70-110)
[2022-02-15 17:04] LABS: African American GFR (CKD) 87 (>60 ml/min/1.73 sqM); Anion Gap 2 mmol/L; Blood Urea Nitrogen 31 mg/dL (7-17); Calcium 8.3 mg/dL (8.4-10.2); Carbon Dioxide 24 mmol/L (22-30); Chloride 93 mmol/L (98-107); Glucose 109 mg/dL (74-99); Non-African American GFR(CKD) 76 (>60 ml/min/1.73 sqM); Potassium 4.6 mmol/L (3.5-5.1)
[2022-02-15 17:06] LABS: Sodium 119 mmol/L (137-145)
[2022-02-15] MEDS: SODIUM CHLORIDE 0.9% 1,000 ML IV SCH (18:04)
[2022-02-15 20:51] LABS: Glucose,Whole Blood 120 mg/dL (70-110)
[2022-02-15] MEDS: DEXAMETHASONE SOD PHOSPHATE 4 MG/ML 1 ML VIAL IVP SCH (21:20)
[2022-02-15] MEDS: MIRTAZAPINE 15 MG TAB PO SCH (21:20)
[2022-02-15] MEDS: MONTELUKAST 10 MG TAB PO SCH (21:20)
[2022-02-16] MEDS: SODIUM CHLORIDE 0.9% 1,000 ML IV SCH (04:56)
[2022-02-16 07:12] LABS: Glucose,Whole Blood 103 mg/dL (70-110)
[2022-02-16 07:34] VITALS: RESP 16
[2022-02-16 07:49] LABS: African American GFR (CKD) >90 (>60 ml/min/1.73 sqM); Anion Gap 3 mmol/L; Blood Urea Nitrogen 28 mg/dL (7-17); Calcium 8.1 mg/dL (8.4-10.2); Carbon Dioxide 22 mmol/L (22-30); Chloride 99 mmol/L (98-107); Glucose 98 mg/dL (74-99); Non-African American GFR(CKD) 80 (>60 ml/min/1.73 sqM); Sodium 124 mmol/L (137-145)
[2022-02-16] MEDS: INSULIN ASPART (NovoLOG) 100 UNIT/ML VIAL SQ SCH ×2 (07:55→12:36)
[2022-02-16] MEDS: PANTOPRAZOLE 40 MG TABLET PO SCH (08:01)
[2022-02-16 08:07] LABS: Potassium 4.8 mmol/L (3.5-5.1)
[2022-02-16] MEDS: levETIRAcetam IV 1,000 MG in SALINE 1 100ML.BAG IVPB SCH (08:33)
[2022-02-16] MEDS: DEXAMETHASONE SOD PHOSPHATE 4 MG/ML 1 ML VIAL IVP SCH (08:33)
[2022-02-16] MEDS: FLUCONAZOLE 100 MG TAB PO SCH (09:22)
[2022-02-16] MEDS: METOPROLOL TARTRATE 25 MG TAB PO SCH (09:22)
[2022-02-16] MEDS: lisinopriL 20 MG TAB PO SCH (09:22)
[2022-02-16] MEDS: SODIUM CHLORIDE TAB 1 GM TAB PO SCH (09:22)
[2022-02-16] MEDS: NYSTATIN 100,000 UNIT/ML SUSP 500,000 UNIT/5 ML CUP PO SCH ×2 (09:29→12:48)
[2022-02-16 11:28] LABS: Glucose,Whole Blood 101 mg/dL (70-110)
--- NOTE | 2022-02-16 11:53 | P.PN ---
Subjective Progress Note Date: 02/16/22 The patient is seen at bedside and is accompanied with her daughter. No overnight seizures or seizures today according to daughter. She is happy that her mother seems more comfortable today. Patient is made home hospice. Objective - Vital Signs Vital signs: Vital Signs Temp 98.2 F 02/16/22 08:00 Pulse 65 02/16/22 08:00 Resp 16 02/16/22 08:00 BP 125/68 02/16/22 08:00 Pulse Ox 95 02/16/22 08:00 FiO2 Intake & Output 02/15/22 02/16/22 02/16/22 18:59 06:59 18:59 Intake Total 120 Output Total 75 2000 Balance 45 -2000 Weight 72.575 kg Intake: Oral 120 Output: Urine 0 1999 Emesis 75 Other: Voiding Method Diaper Diaper Incontinent Incontinent Indwelling Catheter Indwelling Catheter - Exam GENERAL: The patient is lying in bed and is not in acute distress. NEUROLOGICAL: Somewhat limited because of her cooperation. Higher mental function: The patient is drowsy but is awakeable to voice. Oriented to self, place. With options she correctly stated the correct year but could not answer the month. She is following simple commands. No aphasia or neglect. Cranial nerves: The pupils are round, equal and reactive to light. Visual coon could not assess because of cooperation. Extraocular movement is intact no nystagmus is noted. No facial weakness. No dysarthria. Motor: The strength is hard to assess individual muscles because of cooperation but moving all extremities above gravity. Normal tone and bulk. Cerebellum: Normal finger to nose bilaterally. Sensation: Sensation is normal to touch throughout. Reflexes (right/left): 1+ throughout. Plantars are mute bilaterally. - Labs CBC & Chem 7: 02/15/22 06:40 02/16/22 07:06 Labs: Abnormal Lab Results - Last 24 Hours (Table) 02/15/22 02/15/22 02/15/22 Range/Units 06:40 11:49 16:46 Sodium 119 L* (137-145) mmol/L Chloride 93 L (98-107) mmol/L BUN 31 H (7-17) mg/dL Glucose 109 H (74-99) mg/dL POC Glucose (mg/dL) 118 H (70-110) mg/dL Osmolality 262 L (280-301) mosm/kg Calcium 8.3 L (8.4-10.2) mg/dL 02/15/22 02/15/22 02/16/22 Range/Units 17:02 20:40 07:06 Sodium 124 L (137-145) mmol/L Chloride (98-107) mmol/L BUN 28 H (7-17) mg/dL Glucose (74-99) mg/dL POC Glucose (mg/dL) 113 H 120 H (70-110) mg/dL Osmolality (280-301) mosm/kg Calcium 8.1 L (8.4-10.2) mg/dL Assessment and Plan Assessment: Breakthrough seizure due to her underlying brain tumor Glioblastoma multiform History of seizure (staring episodes) Thrombocytopenia 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 Patient has known history of seizure. Because the patient's mentation improved there is no reason to the obtain a routine EEG. Patient is on dexamethasone 4 mg 1 tablet twice a day Continue salt tablet 1gm bid for her hyponatremia. Patient is on seizure precaution seizure pads Every 4 hours neuro checks The family decided to make patient home hospice. The plans discussed with the patient and her daughter who is at bedside. Neurology will sign off. Please reconsult if any further concerns. Michael Paez M.D. Neuro-hospitalist Time with Patient: Less than 30
[2022-02-16 13:32] VITALS: BP 124/64; PULSE 53; TEMP 97.7
[2022-02-16] MEDS: MORPHINE SULFATE 4 MG/ML SYRINGE IVP PRN (14:17)
--- NOTE | 2022-02-16 14:28 | P.DS ---
Providers Date of admission: 02/14/22 20:04 Expected date of discharge: 02/16/22 Attending physician: Francesca Stratton MD Consults: 02/14/22 20:04 Consult Physician Routine Consulting Provider: Hazel Call Consult Reason/Comments: breakthrough seizure Do you want consulting provider notified?: Already Contacted [facility] Hospital Course: Discharge Diagnosis: Breakthrough seizure while on prophylactic Keppra due to underlysing underlying glioblastoma Gluoblastoma Hyponatremia due to SIADH Thrush Thrombocytopenia Type II DM COPD Hospital Course: The patient is a 76-year-old female with recently diagnosed glioblastoma opted to forgo treatment, type II DM, hypertension, and COPD who presented to the ED for breakthrough seizure. The patient recently been started on antiseizure medications after diagnosis of GBM. The patient was initially admitted to [facility] in 01/17 for altered mental status and was diagnosed with a brain mass. She was subsequently transferred to [facility] where she underwent a brain biopsy revealing the mass to be a glioblastoma. The family discussed the case in great detail with neurosurgery at [place] as well as oncology, and decided to not pursue any treatments. She was hospitalized for 2 weeks and subsequently was discharged home, however her condition worsened and she required hospitalization with subsequent discharge this past Tuesday. In the ED she underwent a laboratory evaluation in the emergency room which was re markable for sodium 122, chloride 92, BUN 36, total bilirubin 1.4, and platelet count 77. CT brain revealed a mass at the corpus callosum consistent with tumor not significantly different from recent exam with findings that could relate to some diffuse cerebral edema unchanged from prior. EKG revealed sinus rhythm at 67 bpm. Family asked for a hospice consult. Seen by neurology and started on kep pra and salt tablets. Testing came back showing SIADH likely related to her underlying malignancy. She was placed on a fluid restriction. She did not have any additional seizures during her hospital stay and she was subsequently discharged home with hospice. She will have Valium rectal to use at home for recurrent seizures. Discussed with hospice nursing at time of discharge. Advised for fluid restriction if possible to decrease her risk of recurrent seizure due to hyponatremia. Once she progresses to be unable to tolerate solid foods would place comfort above fluid restriction. Patient seen and examined at bedside. States she is feeling much better today than yesterday. She is able to swallow well. She reports that she has more energy today. Vital signs reviewed and stable. General: nontoxic, no distress, appears at stated age Derm: warm, dry Head: atraumatic, normocephalic, symmetric Eyes: EOMI, no lid lag, anicteric sclera Mouth: no lip lesion, mucus membranes moist Cardiovascular: S1S2 reg, no murmur, positive posterior tibial pulse bilateral, Lungs: CTA bilateral, no rhonchi, no rales , no accessory muscle use Abdominal: soft, nontender to palpation, no guarding, no appreciable organomegaly Ext: no gross muscle atrophy, no edema, no contractures Neuro: CN II-XI grossly intact Psych: Awake, conversational today A total of 35 minutes of time were spent preparing this complex discharge summary. Patient was discharged on 02/16/22. Patient Condition at Discharge: Stable Plan - Discharge Summary Discharge Rx Participant: No New Discharge Prescriptions: New levETIRAcetam ORAL SOLN [Keppra Oral Soln] 1,000 mg PO BID #600 ml Sodium Chloride Tab 1 gm PO BID #60 tab Continue lisinopriL [Zestril] 40 mg PO DAILY Omeprazole 20 mg PO DAILY dexAMETHasone 4 mg PO BID Mirtazapine 7.5 mg PO HS Metoprolol Tartrate [Lopressor] 25 mg PO BID Acetaminophen [Tylenol] 650 mg PO Q6H PRN PRN Reason: Fever And/ Or Pain Montelukast Sodium [Singulair] 10 mg PO HS Albuterol Sulfate [Albuterol Sulfate Hfa] 2 puff PO RT-Q4H PRN PRN Reason: Shortness Of Breath Nystatin 100,000 Unit/ml Susp [Mycostatin Oral Susp] 5 ml PO QID Fluconazole [Diflucan] 100 mg PO DAILY #4 tab Discontinued traZODone HCL [Desyrel] 50 mg PO HS Folic Acid 1 mg PO DAILY levETIRAcetam [Keppra] 500 mg PO Q12HR [place]-3/Dha/Epa/Fish Oil [Fish Oil 500 mg Softgel] 2 cap PO DAILY Discharge Medication List Albuterol Sulfate [Albuterol Sulfate Hfa] 2 puff PO RT-Q4H PRN 01/17/22 [History] Montelukast Sodium [Singulair] 10 mg PO HS 01/17/22 [History] Omeprazole 20 mg PO DAILY 01/17/22 [History] lisinopriL [Zestril] 40 mg PO DAILY 01/17/22 [History] Acetaminophen [Tylenol] 650 mg PO Q6H PRN 02/14/22 [History] Metoprolol Tartrate [Lopressor] 25 mg PO BID 02/14/22 [History] Mirtazapine 7.5 mg PO HS 02/14/22 [History] Nystatin 100,000 Unit/ml Susp [Mycostatin Oral Susp] 5 ml PO QID 02/14/22 [History] dexAMETHasone 4 mg PO BID 02/14/22 [History] Fluconazole [Diflucan] 100 mg PO DAILY #4 tab 02/16/22 [Rx] Sodium Chloride Tab 1 gm PO BID #60 tab 02/16/22 [Rx] levETIRAcetam ORAL SOLN [Keppra Oral Soln] 1,000 mg PO BID #600 ml 02/16/22 [Rx] Follow up Appointment(s)/Referral(s): [facility] [[facility]-STAFF] - As Needed Activity/Diet/Wound Care/Special Instructions: Activity: as tolerated, turn frequently in bed. Diet: Encourage solid food intake. Her low salt levels are caused from the cancer not allowing her body to process salt appropriately. She holds onto the liquid she consumes. The salt tablets should help with this. Ideally if able to tolerate solids limit liquids to 1500 mL/Day. I do anticipate that at some point she will only be able to tolerate liquids and her comfort is much more important than any fluid restriction. Special Instructions: [place] for comfort Use Rectal Valium for seizures at home. Discharge Disposition: HOME WITH HOSPICE
== END 2022-02-16 15:34 | disposition hospice, home (50) | DRG 100 ==
LOC: EC 17:03 → 3SCARD 20:04 → 4SSUR 02-15 11:06
PROVIDERS: ADMIT Internal Medicine; ATTEND Internal Medicine
DX: G40.909 Epilepsy, unspecified, not intractable, without status epilepticus (principal); G93.6 Cerebral edema; C71.0 Malignant neoplasm of cerebrum, except lobes and ventricles; E22.2 Syndrome of inappropriate secretion of antidiuretic hormone; B37.0 Candidal stomatitis; G91.9 Hydrocephalus, unspecified; Z66 Do not resuscitate; Z51.5 Encounter for palliative care; T42.6X5A Adverse effect of other antiepileptic and sedative-hypnotic drugs, initial encounter; E11.9 Type 2 diabetes mellitus without complications; J44.9 Chronic obstructive pulmonary disease, unspecified; E86.0 Dehydration; D69.59 Other secondary thrombocytopenia; E87.8 Other disorders of electrolyte and fluid balance, not elsewhere classified; R15.9 Full incontinence of feces; I10 Essential (primary) hypertension; F32.A Depression, unspecified; Z79.899 Other long term (current) drug therapy; Z82.49 Family history of ischemic heart disease and other diseases of the circulatory system; Z85.841 Personal history of malignant neoplasm of brain; X58.XXXA Exposure to other specified factors, initial encounter
CPT/HCPCS: 36415; 70450; 80048; 80053; 80143; 80179; 80306; 80320; 81003; 83735; 83930; 83935; 84300; 85025; 93005; 96365; 96375; 96376; 99285